=== PATIENT | female | born 1950 | race Caucasian/White ===

== ENCOUNTER 2017-12-05 10:42 | Emergency (ER) | payer MEDICARE, BC, SELFPAY ==
[2017-12-05 10:51] VITALS: BP 151/80; PULSE 83; RESP 18; TEMP 36.6
--- NOTE | 2017-12-05 11:00 | W.ED.GENAD ---
Discharge Plan Disposition Patient Disposition: HOME Condition: Fair Discharge Details Chief Complaint: Urinary Clinical Impression: Acute UTI, URI (upper respiratory infection) Primary Care Provider: Sofia Stubbs ED Provider: Eula Khanna Home Meds and New Rx's Prescriptions: New cephalexin [Keflex] 500 mg capsule 500 mg PO BID Qty: 10 RF: 0 Continue lisinopril 5 MG tablet 5 mg PO DAILY RF: 0 levothyroxine 112 MCG tablet 125 mcg PO DAILY RF: 0 Discharge Instructions Instructions: Urinary Tract Infection in Women (ED), Upper Respiratory Infection (ED) Additional Instructions: Encourage hydration. Tylenol and/or ibuprofen as needed for discomfort. Please take Keflex as prescribed for urinary tract infection. Pyridium can help with symptomatic management may be used as needed. Please follow-up with primary care in 1 week if your symptoms have not completely resolved. If you develop fever/chills, increased pain, pain in your back, nausea vomiting or other new/worsening symptoms please seek care urgently once again Referrals: Sofia Stubbs [Primary Care Provider] - Discharge Data Discharge Date/Time-TO BE ENTERED AT DEPARTURE: 12/05/17 12:20 Medical Decision Making Patient is 67-year-old female presenting today with chief complaint of dysuria, increased frequency and urgency. Reports that she has had some dribbling. Symptoms began approximately 2 days ago. She reports that she has had urinary tract infections historically, last was several years ago. She reports that this feels quite similar to the previous. Also endorsing upper respiratory symptoms including congestion, sore throat. Endorses some mild arthralgias and myalgias that began 1 week ago. States that she had low-grade temp last week which is since resolved T-max of 9010 ?F. Denies any GI upset. No nausea, vomiting or diarrhea. Denies any cough. States she been feeling very fatigued. Patient has a large amount of stress and fatigue recently. Plan obtain urinalysis. Patient's history and symptoms consistent with urinary tract infection. Patient is also endorsing sore throat and a rapid strep will be performed by nursing staff. She does not appear toxic, vital signs within normal limits Rapid strep negative. Advised that sore throat may be associated with a viral illness, patient diagnosed with pharyngitis. Urinalysis significant for moderate leukocyte esterase, over 50 WBCs, many bacteria with no epithelial cells. Discussed these findings with the patient. Patient diagnosed with a urinary tract infection. Encourage hydration. Patient replaced on Keflex. Also prescribed Pyridium to help with symptomatic management. We discussed new/worsening symptoms when to seek care urgently once again. Advise follow-up with primary care in 1 week if symptoms not completely resolved. All of her questions and concerns were addressed and she is in agreement this plan HPI General Mode of arrival: ambulatory. Date/Time Provider Initiated Documentation: 12/05/17 10:57. Limitations to Documentation: no limitations. Information obtained by: patient. History of Present Illness 67 year old F presents to the emergency department with the chief complaint of bladder pressure, increased urinary frequency, sore throat, described as mild, with intensity rated at 2. Quality is described as aching, and is localized to the mouth (sore throat) and pelvis (low central pain). Patient reports no radiation. Patient started experiencing this day(s) (2) and it has been constant. No relieving factors improve symptom(s), No exacerbating factors reported . Patient notes denies cough, fever/chills, headaches, nausea/vomiting, rash and shortness of breath. Patient did receive the following treatments prior to arrival, none Related Data Home Medications Medication Instructions Recorded Confirmed levothyroxine 125 mcg PO DAILY 06/21/13 12/05/17 lisinopril 5 mg PO DAILY 06/21/13 12/05/17 cephalexin [Keflex] 500 mg PO BID #10 cap 12/05/17 Previous Rx's Medication Instructions Recorded cephalexin [Keflex] 500 mg PO BID #10 cap 12/05/17 Allergies Allergy/AdvReac Type Severity Reaction Status Date / Time No Known Allergies Allergy Unverified 12/05/17 11:48 General Stated Complaint: Urinary VERONICA: 4 Review of Systems Constitutional Reports as per HPI, Reports fatigue (has had large amount of stress and feeling fatigued), Reports fever(s) (reports low grade fever last week with T max 99, since resolved), Denies headache(s), Denies malaise and Denies poor appetite ENT Reports as per HPI, Denies otalgia, Denies facial pain, Denies headache(s), Reports nasal congestion, Reports nasal discharge, Denies sinus pain, Denies sinus pressure and Reports sore throat (began today) Cardiovascular Denies chest pain and Denies dyspnea Respiratory Denies cough and Denies dyspnea Gastrointestinal Denies change in stool character, Denies nausea and Denies vomiting Genitourinary Reports as per HPI, Reports urinary frequency, Reports difficulty voiding, Denies dyspareunia, Reports dysuria, Denies flank pain, Reports urinary incontinence, Reports urinary hesitancy, Reports urinary urgency, Denies vaginal discharge, Denies vaginal odor and Denies vaginal pruritus Musculoskeletal Denies back pain Integumentary/Breasts Denies rash Neurologic Denies headache(s) Endocrine Reports fatigue (has had large amount of stress and feeling fatigued) [facility] Social History Smoking/Tobacco Use Status: Former Tobacco Use Exam Const General: cooperative, healthy appearing, comfortable, no acute distress, well developed and well groomed Nutritional Appearance: average body habitus and well nourished Orientation: alert and awake HENMT Head: normal to inspection and normocephalic Ears: hearing grossly normal bilaterally, external ears normal and TM's normal bilaterally General nose exam: external nose normal Face and sinus: normal facial exam Mouth: oral mucosae normal, lip normal, moist mucous membranes, no audible dysphonia, no drooling and no trismus Teeth and gingiva: dentition normal Throat: posterior oropharynx abnormal (mild erythema), tonsils normal and uvula midline Eyes General: appearance normal, both eyes and all related structures Neck Neck: normal visual inspection and no lymphadenopathy Resp Effort & Inspection: normal respiratory effort, able to speak in complete sentences and no respiratory distress Auscultation: clear to auscultation bilaterally Cardio Rate: regular rate Rhythm: regular rhythm Heart Sounds: S1 normal and S2 normal Back/Spine/Pelvis Back: no CVA tenderness Skin General skin exam: no rashes or lesions noted Lesions: no lesions Rashes: no rashes Neuro General: alert and awake Cognition: normal cognition Speech: speech normal Gait: normal gait Psych Appearance: grossly normal and well kempt Mental Status: mental status grossly normal Speech and Movement: speech and movement normal Course Vital Signs Temperature 36.6 C 12/05/17 10:51 Pulse 83 12/05/17 10:51 Respiratory Rate 18 12/05/17 10:51 Blood Pressure 151/80 H 12/05/17 10:51 Temperature 36.6 C 12/05/17 10:51 Temperature Source Temporal Artery Scan 12/05/17 10:51 Pulse 83 12/05/17 10:51 Respiratory Rate 18 12/05/17 10:51 Blood Pressure 151/80 H 12/05/17 10:51 Blood Pressure Position Sitting 12/05/17 10:51 Oxygen Delivery Method Room Air 12/05/17 10:51 Oxygen Flow Rate 0 12/05/17 10:51 Pain Level 2 12/05/17 10:51
[2017-12-05 11:51] LABS: Bilirubin Negative (Negative); Blood Negative (Negative); Clarity Sl Cloudy; Glucose Negative (Negative); Ketones Negative (Negative); Leukocyte Esterase Moderate (Negative); Nitrite Negative (Negative); Specific Gravity 1.025 (1.005-1.025); Urobilinogen 0.2 EU/dL (Up TO 0.2)
[2017-12-05 12:03] LABS: Bacteria Many HPF (Negative); C & S Indicated? Yes; WBC >50 HPF (0-5)
== END 2017-12-05 12:20 | disposition home or self-care (01) ==
PROVIDERS: Emergency Provider Physician Assistant; PCP Nurse Practitioner
DX: J06.9 Acute upper respiratory infection, unspecified (principal); N39.0 Urinary tract infection, site not specified; B96.20 Unspecified Escherichia coli [E. coli] as the cause of diseases classified elsewhere; Z87.440 Personal history of urinary (tract) infections; I10 Essential (primary) hypertension
CPT/HCPCS: 87077; 87880; 99283; 81003; 81015; 87081; 87086; 87186

== ENCOUNTER 2017-12-13 18:03 | Outpatient (REF) | payer MEDICARE, BC, SELFPAY | END 2017-12-13 18:23 | LOC: NCHCN 18:03 | PROVIDERS: PCP Nurse Practitioner; Visit Provider Nurse Practitioner Family | DX: R30.0 Dysuria (principal) | CPT/HCPCS: 87077; 87086; 87186 ==

== ENCOUNTER 2018-03-14 13:46 | Emergency (ER) | payer MEDICARE, BC, SELFPAY ==
[2018-03-14] VITALS (22 sets, daily range): BP systolic 104–142; BP diastolic 50–120; PULSE 55–69; RESP 9–21; TEMP 36.4; O2SAT 99–100
[2018-03-14 14:40] LABS: Absolute Lymphocyte Count 2.25 k/cumm (1.2-3.4); Absolute Monocyte Count 0.38 k/cumm (0.11-0.7); Absolute Neutrophil Count 4.88 k/cumm (1.2-6.7); Diff Comment Manual Differential; HCT 43.6 % (36.0-46.0); HGB 14.3 g/dL (12.0-15.5); Mean Corp. HGB Concentration 32.8 g/dL (32.0-36.0); Mean Corpuscular Hemoglobin 28.9 pg (27.0-33.0); Mean Corpuscular Volume 88.1 fL (80-95); Mean Platelet Volume 11.5 fL (8.0-11.0); Platelet Count 330 x1000/uL (130-400); RBC 4.95 m/cumm (4.00-5.20); RBC Morphology Normal
[2018-03-14] MEDS: Normal Saline 500 ML IV ×2 (14:46→15:45)
--- NOTE | 2018-03-14 14:53 | ED.GENADUL_ITS ---
Discharge Plan Disposition Patient Disposition: HOME Condition: Improving Discharge Details Chief Complaint: Dizzy/Sync Clinical Impression: Syncope, vasovagal, Right ankle sprain Reason For Visit: DAVID Primary Care Provider: Sofia Stubbs ED Provider: Dany Viramontes Home Meds and New Rx's Prescriptions: Continued lisinopril 5 MG tablet 5 mg PO DAILY RF: 0 levothyroxine 112 MCG tablet 125 mcg PO DAILY RF: 0 Discharge Instructions Instructions: Syncope (ED) Additional Instructions: Please stay well-hydrated and return for any return of your symptoms or any further G may have. Otherwise follow-up with your primary care provider as needed for reassessment. Referrals: Sofia Stubbs [Primary Care Provider] - (As needed for reassessment) Discharge Data Discharge Date/Time-TO BE ENTERED AT DEPARTURE: 03/14/18 16:37 Medical Decision Making Patient presenting to the emergency department via EMS for chief complaint of syncope. Patient states that she had a sudden urge to use the restroom and during a significant episode of diarrhea she attempted to stand up and got lightheaded and passed out. She states afterwards her only complaint was some mild right ankle pain. Patient is otherwise asymptomatic and denies any chest pain, difficulty breathing, focal neurological deficits. Exam at this time is unremarkable except for some mild anterior ankle pain. Patient has full range of motion no tenderness to bony prominences and is weightbearing on ankle. Far as the ankle pain goes I feel that patient more has sprained than fracture do not feel that radiological imaging is needed or warranted at this time patient also states that she would prefer not to have imaging of the ankle she also doubts fracture. Plan to check EKG, and labs to rule out any emergent cause of syncope but highly suspect vasovagal event. Pending results patient given normal saline. Review of labs show subtle signs suggestive of mild dehydration along with orthostatics also showing the same but no other worrisome findings are noted. Patient fluid bolus finished and patient reassessed and states improvement of symptoms and that she has had no return of any dizziness lightheadedness with any standing or movement. I feel that this is reassuring and patient can be discharged with instructions to stay well-hydrated and return as needed. After discussion of diagnosis and plan of care patient has no further needs, questions, or concerns and states clear understanding to return to the emergency department for any worsening sympto HPI General Mode of arrival: EMS . Date/Time Provider Initiated Documentation: 03/14/18 14:08 . Limitations to Documentation: no limitations . Information obtained by: patient and RN notes reviewed . History of Present Illness 67 year old F presents to the emergency department with the chief complaint of Syncope, right ankle pain, described as mild, with intensity rated at 3. Quality is described as aching, and is localized to the right and lower extremity. Patient started experiencing this hour(s) (1) and it has been constant. Related Data Home Medications Medication Instructions Recorded Confirmed levothyroxine 125 mcg PO DAILY 06/21/13 03/14/18 lisinopril 5 mg PO DAILY 06/21/13 03/14/18 Allergies Allergy/AdvReac Type Severity Reaction Status Date / Time No Known Allergies Allergy Unverified 03/14/18 14:00 General Stated Complaint: Dizzy/Sync VERONICA: 3 Review of Systems Constitutional Denies chills, Denies fever(s) and Denies malaise Cardiovascular Reports as per HPI, Denies chest pain, Denies chest pain with activity, Reports syncope, Denies irregular heart rhythm, Denies palpitations and Denies dyspnea Respiratory Denies cough, Denies hemoptysis and Denies dyspnea Gastrointestinal Denies abdominal pain, Reports diarrhea, Denies nausea and Denies vomiting Musculoskeletal Reports as per HPI Neurologic Reports syncope Psychiatric Denies anxiety Endocrine Denies cold intolerance, Denies heat intolerance and Denies palpitations [facility] Social History Smoking and Tabacco status: Former Tobacco Use Exam Const General: cooperative, healthy appearing, comfortable, no acute distress, not diaphoretic and not ill appearing Nutritional Appearance: average body habitus Orientation: alert, awake and oriented x3 Limitations: mental status not altered Neck Neck: normal visual inspection, full ROM, trachea midline, supple and no anterior neck swelling Thyroid: thyroid normal Carotids: normal carotid upstroke and no bruits Chest Chest: normal inspection of the chest Resp Effort & Inspection: normal respiratory effort and able to speak in complete sentences Auscultation: clear to auscultation bilaterally Cardio Jugular venous pressure: no JVD Palpation: normal PMI Rate: regular rate Rhythm: regular rhythm Heart Sounds: S1 normal, S2 normal, no click, no gallops, no murmurs and no rubs Bruits: no abdominal aortic bruits and no carotid bruits Pulses: radial pulses present bilaterally 2+ GI Inspection: normal to inspection Palpation: soft, no aortic enlargement, no pulsatile masses and nontender Auscultation: normal bowel sounds Skin General skin exam: no rashes or lesions noted Neuro General: alert, awake, oriented x3, gait normal, tone normal, moves all extremities, no focal motor deficits and CN's II-XI intact bilaterally Cognition: normal cognition Speech: speech normal Motor: muscle tone normal throughout, strength 5/5 throughout and no movement abnormalities noted Sensory Exam: no sensory deficits noted Extrem Right lower extremity: knee Details: normal to inspection and normal ROM; no tenderness, ankle Details: tenderness Location: anteriorly; not of the lateral malleolus, not of the medial malleolus and not posteriorly and foot Details: normal capillary refill and normal to inspection Course Vital Signs Respiratory Rate 21 03/14/18 13:52 Pulse Oximetry 100 03/14/18 13:52 Temperature 36.4 C L 03/14/18 13:56 Temperature Source Skin 03/14/18 13:56 Pulse 57 L 03/14/18 14:01 Pulse 59 L 03/14/18 14:10 Respiratory Rate 16 03/14/18 14:16 Respiratory Effort Non-Labored 03/14/18 14:16 Respiratory Depth Normal 03/14/18 14:16 Respiratory Pattern Normal 03/14/18 14:16 Blood Pressure 108/79 03/14/18 14:01 Blood Pressure Mean 85 03/14/18 14:01 Blood Pressure Position Supine 03/14/18 13:56 Pulse Oximetry 100 03/14/18 14:10 Oxygen Delivery Method Room Air 03/14/18 13:56 Oxygen Flow Rate 0 03/14/18 13:56 Pain Level 2 03/14/18 14:19 Lab/Test Results Lab/Test Results: Laboratory Tests Range/Units 03/14/18 14:10 WBC (4.4-10.8) k/cumm 7.50 RBC (4.00-5.20) m/cumm 4.95 Hgb (12.0-15.5) g/dL 14.3 Hct (36.0-46.0) % 43.6 MCV (80-95) fL 88.1 MCH (27.0-33.0) pg 28.9 MCHC (32.0-36.0) g/dL 32.8 RDW (11.7-14.6) % 14.0 Plt Count (130-400) x1000/uL 330 MPV (8.0-11.0) fL 11.5 H Immature Gran % 0.0 Neutrophils % 65.0 Lymphocytes % 30.0 Monocytes % 5.0 Eosinophils % 0.0 Basophils % 0.0 Absolute Neutrophils (1.2-6.7) k/cumm 4.88 Absolute Lymphocytes (1.2-3.4) k/cumm 2.25 Absolute Monocytes (0.11-0.7) k/cumm 0.38 Absolute Eosinophils (0.0-0.7) k/cumm 0.00 Absolute Basophils (0.0-0.2) k/cumm 0.00 Differential Comment Manual differential RBC Morphology Normal
[2018-03-14 14:57] LABS: ALT 23 U/L (12-78); AST 20 U/L (15-37); Albumin 3.6 g/dL (3.4-5.0); Alkaline Phosphatase 86 U/L (46-116); Anion Gap 8.9 mmol/L (3-11); BUN 19 mg/dL (7-18); Bilirubin, Total 0.5 mg/dL (0.2-1.0); CO2 30.1 mmol/L (21.0-32.0); CREATININE 1.06 mg/dL (0.55-1.02); Calcium 9.1 mg/dL (8.5-10.1); Chloride 106 mmol/L (98-107); Glucose 128 mg/dL (70-100); Magnesium 2.2 mg/dL (1.8-2.4); Potassium 3.7 mmol/L (3.5-5.1); Sodium 145 mmol/L (136-145); Total Protein 7.4 g/dL (6.4-8.2)
[2018-03-14 15:00] LABS: Troponin I < 0.02 ng/mL (0.00-0.06)
== END 2018-03-14 16:37 | disposition home or self-care (01) ==
PROVIDERS: Emergency Provider Nurse Practitioner Family; PCP Nurse Practitioner
DX: R55 Syncope and collapse (principal); R19.7 Diarrhea, unspecified; S93.421A Sprain of deltoid ligament of right ankle, initial encounter; W01.0XXA Fall on same level from slipping, tripping and stumbling without subsequent striking against object, initial encounter
CPT/HCPCS: 36415; 80053; 93005; 96360; 99284; 81003; 83735; 84484; 85025; 93010

== ENCOUNTER 2018-05-11 20:40 | Emergency (ER) | payer MEDICARE, BC, SELFPAY ==
[2018-05-11 20:43] VITALS: BP 150/94; PULSE 88; RESP 16; TEMP 36.4; O2SAT 99
--- NOTE | 2018-05-11 21:01 | ED.GENADUL_ITS ---
Discharge Plan Disposition Patient Disposition: HOME Condition: Stable Discharge Details Chief Complaint: RespSymp Clinical Impression: URI (upper respiratory infection) Primary Care Provider: Sofia Stubbs ED Provider: Johnson Burden Home Meds and New Rx's Prescriptions: New doxycycline hyclate 100 mg tablet 100 mg PO BID Qty: 14 RF: 0 No Action lisinopril 5 MG tablet 5 mg PO DAILY RF: 0 levothyroxine 112 MCG tablet 125 mcg PO DAILY RF: 0 Discharge Instructions Instructions: Upper Respiratory Infection (ED) Additional Instructions: IF you are not better within a week see your primary care provider if you feel you are becoming more ill or having worsening trouble breathing return to the emergency department Medical Decision Making 68 yo female who has a hx of htn, comes in with cc of cough for several days and today had a fever so came here for an eval. Denies recent travel, rashes, vomit. She appears well on exam in no distress speaking in full sentences with intermittent dry cough. She has clear rhininorrhea, normal oropharynx, no murmurs. I suspect uri but will check for influenza and also obtain chest xray to eval for infiltrate. She appears well and is afebrile so doubt sepsis and do not feel lab work indicated at this time influenza negative and cxr negative, she is resting in bed in no distrss with stable vitals. Suspect viral uri but will provide abx and advised only to fill if not improving in 2-3 days or if she worsens and to come back for reeval if this happens Differential Diagnosis pna, uri, influenza Imaging Data Radiologic Study: Attestation: I personally reviewed and interpreted this imaging study as follows: Imaging: X-Ray Radiologist's impression: no acute findings Lab Data Lab results reviewed: Yes I reviewed the patient's lab results. HPI General Mode of arrival: ambulatory . Date/Time Provider Initiated Documentation: 05/11/18 20:50 . Limitations to Documentation: no limitations . Information obtained by: patient . History of Present Illness 68 year old F presents to the emergency department with the chief complaint of cough, described as moderate, Quality is described as aching, Patient reports no radiation. Patient started experiencing this day(s) (3) and it has been intermittent. No relieving factors improve symptom(s), No exacerbating factors reported . Patient notes fever/chills. Patient did receive the following treatments prior to arrival, none Related Data Home Medications Medication Instructions Recorded Confirmed levothyroxine 125 mcg PO DAILY 06/21/13 05/11/18 lisinopril 5 mg PO DAILY 06/21/13 05/11/18 doxycycline hyclate 100 mg PO BID #14 tab 05/11/18 Previous Rx's Medication Instructions Recorded doxycycline hyclate 100 mg PO BID #14 tab 05/11/18 Allergies Allergy/AdvReac Type Severity Reaction Status Date / Time No Known Allergies Allergy Unverified 05/11/18 20:47 General Stated Complaint: RespSymp VERONICA: 3 Review of Systems Review of Systems All systems reviewed & are unremarkable except as noted in HPI and below ENT Denies change in voice Cardiovascular Denies chest pain and Denies dyspnea Respiratory Denies dyspnea Gastrointestinal Denies abdominal pain, Denies nausea and Denies vomiting Psychiatric Denies depression Endocrine Denies cold intolerance and Denies heat intolerance PFSH Social History Smoking/Tobacco Use Status: Former Tobacco Use Alcohol Intake: current Alcohol Intake frequency: a few times a month Drug use: Never Substance use type: does not use Do you feel safe at home: Yes Do you feel safe in your relationship?: Yes Exam Const General: no acute distress Orientation: alert HENMT Head: normal to inspection Ears: external ears normal General nose exam: external nose normal Mouth: moist mucous membranes Eyes General: appearance normal, both eyes and all related structures Neck Neck: normal visual inspection Resp Effort & Inspection: normal respiratory effort and able to speak in complete sentences Cardio Rate: regular rate Skin General skin exam: no rashes or lesions noted Neuro General: alert and oriented x3 Extrem General: normal to inspection Psych Mental Status: mental status grossly normal Course Vital Signs Temperature 36.4 C L 05/11/18 20:43 Pulse 88 05/11/18 20:43 Respiratory Rate 16 05/11/18 20:43 Blood Pressure 150/94 H 05/11/18 20:43 Pulse Oximetry 99 05/11/18 20:43 Temperature 36.4 C L 05/11/18 20:43 Temperature Source Skin 05/11/18 20:43 Pulse 88 05/11/18 20:43 Respiratory Rate 16 05/11/18 20:43 Respiratory Effort 05/11/18 20:49 Respiratory Depth Normal 05/11/18 20:49 Blood Pressure 150/94 H 05/11/18 20:43 Blood Pressure Position Sitting 05/11/18 20:43 Pulse Oximetry 99 05/11/18 20:43 Oxygen Delivery Method Room Air 05/11/18 20:43 Oxygen Flow Rate 0 05/11/18 20:43 Pain Level 4 05/11/18 20:43
--- NOTE | 2018-05-11 21:20 | DI.RAD_ITS ---
SYMPTOM/DIAGNOSIS: COUGH PA AND LATERAL CHEST: The heart is not enlarged. The lungs are generally clear with question of minimal linear radiodensities in the left lung base which may represent atelectasis or scarring. No pleural effusion is seen. CONCLUSION: No evidence of acute disease.
--- NOTE | 2018-05-11 21:48 | DI.VRAD_ITS ---
EXAM: XR Chest, 2 Views EXAM DATE/TIME: 05/11/2018 8:58 PM CLINICAL HISTORY: 68 years old, female; Signs and symptoms; Cough; Patient HX: Productive cough x 4 days, yellowish sputum. Ex smoker quit in 2008. TECHNIQUE: Imaging protocol: XR of the chest, 2 views. COMPARISON: No relevant prior studies available. FINDINGS: Lungs: Clear lungs. Pleural space: No pneumothorax. No sizable pleural effusion. Heart/Mediastinum: No cardiomegaly. Bones/joints: Unremarkable. IMPRESSION: Clear lungs. Dictated and Authenticated by: Troy Nelson MD. Ordering:SAV Ornelas MD
== END 2018-05-11 22:32 | disposition home or self-care (01) ==
PROVIDERS: Emergency Provider Emergency Medicine; PCP Nurse Practitioner
DX: J06.9 Acute upper respiratory infection, unspecified (principal)
CPT/HCPCS: 87449; 99283; 71046

== ENCOUNTER 2018-05-23 08:57 | Outpatient (CLI) | payer MEDICARE, BC, SELFPAY ==
[2018-05-23 10:44] LABS: ALT 34 U/L (12-78); AST 18 U/L (15-37); Albumin 3.7 g/dL (3.4-5.0); Alkaline Phosphatase 118 U/L (46-116); Anion Gap 9.1 mmol/L (3-11); BUN 15 mg/dL (7-18); Bilirubin, Total 0.6 mg/dL (0.2-1.0); CO2 29.9 mmol/L (21.0-32.0); CREATININE 0.88 mg/dL (0.55-1.02); Calcium 9.3 mg/dL (8.5-10.1); Chloride 103 mmol/L (98-107); Cholesterol 186 mg/dL (50-200); Glucose 94 mg/dL (70-100); HDL Cholesterol 57 mg/dL (40-60); LDL CHOLESTEROL 115 mg/dL (<100); Potassium 4.5 mmol/L (3.5-5.1); Sodium 142 mmol/L (136-145); TSH (W/Ref FT4) 0.12 uIU/mL (0.358-3.74); Total Protein 6.9 g/dL (6.4-8.2); Triglyceride 62 mg/dL (30-150)
[2018-05-23 11:11] LABS: FREE T4 1.67 ng/dL (0.76-1.46)
== END 2018-05-23 09:17 ==
PROVIDERS: PCP Nurse Practitioner; Visit Provider Nurse Practitioner
DX: I10 Essential (primary) hypertension (principal); E03.9 Hypothyroidism, unspecified; Z13.6 Encounter for screening for cardiovascular disorders
CPT/HCPCS: 36415; 80053; 80061; 83721; 84439; 84443

== ENCOUNTER 2018-07-31 15:19 | Outpatient (CLI) | payer MEDICARE, BC, SELFPAY ==
[2018-07-31 16:45] LABS: ALT 27 U/L (12-78); AST 21 U/L (15-37); Alkaline Phosphatase 97 U/L (46-116); Anion Gap 6.3 mmol/L (3-11); BUN 18 mg/dL (7-18); Bilirubin, Total 0.7 mg/dL (0.2-1.0); CO2 30.7 mmol/L (21.0-32.0); CREATININE 0.94 mg/dL (0.55-1.02); Chloride 104 mmol/L (98-107); Estimated GFR 58.87 (mL/min/1.73m2); Glucose 88 mg/dL (70-100); Potassium 4.4 mmol/L (3.5-5.1); Sodium 141 mmol/L (136-145); Total Protein 7.1 g/dL (6.4-8.2)
[2018-08-01 13:21] LABS: SS-A Antibody 2.7 Units (<20); SS-B (La) Ab, IgG 9.7 Units (<20)
== END 2018-07-31 15:39 ==
PROVIDERS: PCP Nurse Practitioner; Visit Provider Otolaryngology Otolaryngology/Facial Plastic Surgery
DX: R43.0 Anosmia (principal); R43.2 Parageusia; R44.2 Other hallucinations; L40.9 Psoriasis, unspecified; R68.2 Dry mouth, unspecified; J34.89 Other specified disorders of nose and nasal sinuses
CPT/HCPCS: 36415; 80053; 86235

== ENCOUNTER 2018-08-23 08:03 | Outpatient (CLI) | payer MEDICARE, BC, SELFPAY ==
[2018-08-23 09:30] LABS: TSH 1.31 uIU/mL (0.358-3.74)
== END 2018-08-23 08:23 ==
PROVIDERS: PCP Nurse Practitioner; Visit Provider Nurse Practitioner
DX: E03.9 Hypothyroidism, unspecified (principal)
CPT/HCPCS: 36415; 84443

== ENCOUNTER 2018-11-03 22:35 | Emergency (ER) | payer MEDICARE, BC, SELFPAY ==
--- NOTE | 2018-11-03 22:44 | ED.GENADUL_ITS ---
Discharge Plan Disposition Patient Disposition: HOME Condition: Good Discharge Details Chief Complaint: Dizzy/Sync Clinical Impression: Peripheral vertigo, Acute labyrinthitis Primary Care Provider: Sofia Stubbs ED Provider: Remy Quintanilla Home Meds and New Rx's Prescriptions: New meclizine 25 mg tablet 25 mg PO TID Qty: 14 RF: 0 ondansetron HCl [Zofran] 4 mg tablet 4 mg PO Q8H 4 Days Qty: 12 RF: 0 No Action omega-3 fatty acids 1,000 mg capsule 1,000 mg PO DAILY RF: 0 cholecalciferol (vitamin D3) 1,000 unit capsule 1,000 unit PO DAILY RF: 0 juice plus fiber PO RF: 0 multivitamin tablet 1 tab PO DAILY RF: 0 ibuprofen 800 mg tablet 800 mg PO PRN PRNRF: 0 lisinopril 5 MG tablet 5 mg PO DAILY RF: 0 levothyroxine 112 MCG tablet 125 mcg PO DAILY RF: 0 Discharge Instructions Instructions: Labyrinthitis (ED) Additional Instructions: You have a type of peripheral vertigo. This usually gets better on its own with time. Please take the meclizine and Zofran as needed. Continue to drink 10 to 12 cups of water per day. If you notice any worsening of your symptoms, or any new symptoms such as vomiting, diarrhea, fever, chills, shortness of breath, chest pain, numbness, weakness, or fainting , please return immediately to the emergency department for reevaluation. Please follow up with your primary care provider as soon as possible for reassessment and reevaluation. As always, it was a pleasure participating in your medical care today. Referrals: Sofia Stubbs [Primary Care Provider] - Medical Decision Making This is a 68-year-old female with past medical history of hypertension and chronic anosmia who presents today for notable dizziness and vomiting. Patient states that 1 to 2 hours ago she developed sudden onset dizziness, made worse with moving her head, with associated ringing in her ears. The dizziness brought up out the nausea and vomiting. She denies any abdominal tenderness or headache. Neurologic exam is normal, ambulation demonstrates no signs of ataxia. Cerebellar function testing demonstrates no dysmetria, dysdiadochokinesia, ataxia, vertical or rotatory nystagmus, or positive test of skew. She does have notable horizontal nystagmus, and a positive head impulse test. Signs and symptoms appear clinically consistent with a peripheral etiology. Because of her age and risk factors we will get a CT scan of the head, however I doubt intracranial etiology as her signs and symptoms would appear inconsistent with this. We will give meclizine, Zofran, rehydrate and reassess. 12:[address] scan has returned negative for any acute intracranial process, bleed or infarct. Laboratory work-up is returned unremarkable, no significant electrolyte abnormalities, normal renal function. On reassessment patient signs and symptoms have nearly completely resolved. She has been able to tolerate p.o., she is feeling much better, her dizziness is nearly completely abated. Signs and symptoms at this time appear clinically consistent with peripheral vertigo, and likely M?ni?re's disease or labyrinthitis due to the acute severity of her symptoms. With a repeat neurologic exam being unremarkable and negative for any central event, I feel she can be safely discharged home. Patient feels safe and stable with this plan. I have extensively reviewed the treatment plan and discharge instructions with the patient. I have addressed all patient concerns at this time. The patient was made aware of what symptoms to monitor for that would warrant a return to the emergency department. Discussed the plan with the patient, they demonstrate verbal understanding and agreement with our assessment and plan at this time. FINDINGS: Brain: No hemorrhage. No significant white matter disease. No edema. Ventricles: No ventriculomegaly. Bones/joints: No acute fracture. Sinuses: No acute sinusitis. Mastoid air cells: No mastoid effusion. Soft tissues: No suspicious lesions. IMPRESSION: No acute intracranial findings. Thank you for allowing us to participate in the care of your patient. Dictated and Authenticated by: Alison Clemons MD 11/03/2018 11:55 PM Eastern Time ([place] & [place]) HPI General Date/Time Provider Initiated Documentation: 11/03/18 22:39 . HPI Narrative: This is a 68-year-old female with a past medical history of hypertension, mild anosmia who presents today for evaluation of dizziness and vomiting. Patient states that 1 hour ago she developed relatively sudden onset dizziness that seem to come on on its own. It was associated with notable ringing in her ears, and is made worse by turning her head to the left and the right. She denies any recent upper respiratory infection symptoms. She denies chest pain, shortness of breath, headache, neck pain, numbness, tingling, weakness. She denies history of stroke. She denies any tobacco abuse. She denies any recent traumas. She denies any other complaints at this time. Symptoms are improved most by closing her eyes and not moving her head, made worse by moving her head and keeping her eyes open. Related Data Home Medications Medication Instructions Recorded Confirmed levothyroxine 125 mcg PO DAILY 06/21/13 11/03/18 lisinopril 5 mg PO DAILY 06/21/13 11/03/18 cholecalciferol (vitamin D3) 1,000 1,000 unit PO DAILY 06/22/18 11/03/18 unit capsule ibuprofen 800 mg tablet 800 mg PO PRN PRN tab 06/22/18 11/03/18 juice plus fiber PO 06/22/18 06/22/18 multivitamin 1 tab PO DAILY 06/22/18 11/03/18 omega-3 fatty acids 1,000 mg 1,000 mg PO DAILY 06/22/18 11/03/18 capsule meclizine 25 mg PO TID #14 tab 11/04/18 ondansetron HCl [Zofran] 4 mg PO Q8H 4 Days #12 tab 11/04/18 Previous Rx's Medication Instructions Recorded meclizine 25 mg PO TID #14 tab 11/04/18 ondansetron HCl [Zofran] 4 mg PO Q8H 4 Days #12 tab 11/04/18 Allergies Allergy/AdvReac Type Severity Reaction Status Date / Time No Known Allergies Allergy Unverified 11/03/18 23:06 General VERONICA: 3 Review of Systems Review of Systems ROS Unobtainable: All systems reviewed & are unremarkable except as noted in HPI and below PFSH Medical History (Updated 06/22/18 @ 15:54 by Gisell Yost RN) ADD (attention deficit disorder) (Chronic) Adrenal incidentaloma (Acute) Colon polyp (Resolved) Depression (Chronic) History of cigarette smoking (Resolved) HPV in female (Acute) HTN (hypertension) (Chronic) Hypothyroidism (Chronic) Psoriasis (Chronic) Social History Smoking/Tobacco Use Status: Former Tobacco Use Alcohol Intake: current Alcohol Intake frequency: a few times a month Drug use: Never Substance use type: does not use Do you feel safe at home: Yes Do you feel safe in your relationship?: Yes Exam Narrative Exam Narrative: 1.Const: Well-nourished, Well-developed, appearing stated age 2.Eyes: PERRL, no conjunctival injection, and symmetrical lids. 3.ENT: Atraumatic external nose and ears. Dry MM. Neck: Symmetric, trachea midline, No thyromegaly. Normal TMs with no evidence of effusion. 4.CVS: +S1/S2, No murmurs or gallops. Peripheral pulses 2+ and equal in all extremities. Brisk capillary refill in all extremities. 5.RESP: Unlabored respiratory effort. Clear to auscultation bilaterally. No wheezes rales or rhonchi 6.GI: Soft, Nontender/Nondistended, No hepatosplenomegaly. No guarding or rebound. Normal bowel sounds throughout, no pain at McBurney's point, negative Merlos sign. 7.MSK: Normocephalic/Atraumatic, Extremities w/o deformity or ttp No cyanosis or clubbing, Normal movement of all extremities 8.Skin: Warm, Dry. No rashes or lesions. 9.Neuro: primary health organisation manager II-XII grossly intact. Sensation grossly intact, no focal neurologic deficits. All 6 cardinal planes of vision are fully intact. No evidence of rotatory or vertical nystagmus. The patient demonstrated a normal [id number], good dexterity. There was no evidence of dysdiadochokinesia. Patient was able to ambulate without difficulty. There was no wide-based gait. Romberg, and iscg-[id number] are both normal on testing. Sensation was intact bilaterally as well as muscle strength bilaterally for all extremities. Patient was able to verbalize butter cup with no slurring, or miss pronunciation. Cerebellar function testing is normal. The patient demonstrates a normal hints exam with no findings concerning for a central event. No vertical nystagmus although she does have notable horizontal nystagmus. No rotatory nystagmus.. The head impulse test is negative for any significant central abnormality and demonstrates symptoms consistent with peripheral etiology as she has notable worsening of her symptoms with this movement, as well as loss of correction. Normal test of skew. No suggestion of a central cerebellar event. 10.Psych: (AAO) x3. Appropriate mood and affect
[2018-11-03] MEDS: Normal Saline 1,000 ML 1000 ML IV (22:45)
[2018-11-03 23:03] VITALS: BP 137/107; PULSE 56; RESP 20; TEMP 36.4; O2SAT 99
[2018-11-03 23:03] LABS: Abs Immature Grans 0.02 k/cumm (0.0-0.09); Absolute Basophil Count 0.06 k/cumm (0.0-0.2); Absolute Eosinophil Count 0.19 k/cumm (0.0-0.7); Absolute Lymphocyte Count 2.44 k/cumm (1.2-3.4); Absolute Monocyte Count 0.53 k/cumm (0.11-0.7); Absolute Neutrophil Count 3.94 k/cumm (1.2-6.7); Basophils % 0.8; Eosinophils % 2.6; HCT 37.7 % (36.0-46.0); HGB 12.9 g/dL (12.0-15.5); Immature Grans % 0.3; Mean Corp. HGB Concentration 34.2 g/dL (32.0-36.0); Mean Corpuscular Hemoglobin 29.7 pg (27.0-33.0); Mean Corpuscular Volume 86.7 fL (80-95); Monocytes % 7.4; Neutrophils % 54.9; Platelet Count 312 x1000/uL (130-400); RBC 4.35 m/cumm (4.00-5.20); White Blood Cell Count 7.18 k/cumm (4.4-10.8)
[2018-11-03 23:10] VITALS: BP 119/66; PULSE 58; O2SAT 95
[2018-11-03 23:11] VITALS: RESP 20
[2018-11-03] MEDS: Meclizine 25 MG TAB PO (23:16)
[2018-11-03] MEDS: Ondansetron 4 MG/2 ML VIAL (23:16)
[2018-11-03 23:19] LABS: ALT 25 U/L (14-59); AST 18 U/L (15-37); Albumin 3.7 g/dL (3.4-5.0); Alkaline Phosphatase 84 U/L (46-116); Anion Gap 12.7 mmol/L (3-11); BUN 15 mg/dL (7-18); Bilirubin, Total 0.3 mg/dL (0.2-1.0); CO2 24.3 mmol/L (21.0-32.0); CREATININE 0.91 mg/dL (0.55-1.02); Calcium 8.6 mg/dL (8.5-10.1); Chloride 103 mmol/L (98-107); Glucose 133 mg/dL (70-100); Lipase 109 U/L (73-393); Potassium 3.4 mmol/L (3.5-5.1); Sodium 140 mmol/L (136-145); Total Protein 6.9 g/dL (6.4-8.2)
--- NOTE | 2018-11-03 23:44 | DI.CT_ITS ---
EXAM: CT HEAD WO CLINICAL HISTORY: severe dizzyness. TECHNIQUE: Imaging Protocol: Axial computed tomography images with coronal and sagittal reformatted images were created and reviewed COMPARISON: There are no priors for comparison. FINDINGS: Ventricles and Extra axial spaces: Normal in size and morphology for the patient's age. Hemorrhage: None. Cerebral parenchyma: Normal. Midline shift: None. Brainstem/Cerebellum: Normal. Calvarium: Normal. Visualized Paranasal sinuses/Mastoids: No evidence of acute sinusitis. IMPRESSION: No acute intracranial process. DATA REPOSITORY: All CT scans at this facility are submitted to the National Radiology Data Registry (NRDR) Dose Index Registry (DIR) with the [employer] (A[employer]). RADIATION OPTIMIZATION: All CT scans at this facility use at least one of these dose optimization te chniques: automated exposure control; mA and/or kV adjustment per patient size (includes targeted exa ms where dose is matched to clinical indication); or iterative reconstruction.
[2018-11-04 00:18] VITALS: BP 125/67; PULSE 67; O2SAT 97
[2018-11-04] MEDS: Meclizine 25 MG TAB PO (00:50)
[2018-11-04] MEDS: Ondansetron O.D.T. 4 MG TABEF 8 MG PO (00:50)
[2018-11-04 01:00] VITALS: BP 125/67; PULSE 67; RESP 20; O2SAT 97
== END 2018-11-04 01:01 | disposition home or self-care (01) ==
PROVIDERS: Emergency Provider Student in an Organized Health Care Education/Training Program; PCP Nurse Practitioner
DX: H81.399 Other peripheral vertigo, unspecified ear (principal); H83.09 Labyrinthitis, unspecified ear; I10 Essential (primary) hypertension
CPT/HCPCS: 36415; 80053; 83690; 96361; 96374; 99284; 70450; 85025; J2405

== ENCOUNTER → 2018-11-17 10:49 | Outpatient (BNVA) | payer MEDICARE, BC, SELFPAY | PROVIDERS: PCP Nurse Practitioner; Referring Provider Nurse Practitioner; Visit Provider Physical Therapy Assistant | DX: Z12.11 Encounter for screening for malignant neoplasm of colon (principal); Z80.0 Family history of malignant neoplasm of digestive organs; I10 Essential (primary) hypertension ==

== ENCOUNTER 2018-12-26 07:15 | Day surgery (SDC) | payer MEDICARE, BC, SELFPAY ==
--- NOTE | 2018-12-11 06:56 | W.COLOREPORT ---
Date of service: 12/11/18 Colonoscopy Report Date of procedure: 12/11/18 Pre-op diagnosis general: Colon CAncer Screening and Family history of colon cancer Procedure: Colonoscopy Surgeon: Kait Myers Anesthesia proc note operative: other (General/ ASA /) Complications: None Disposition: same day Indications: Mrs. Mendez is a pleasant 68-year-old female who was seen in the office for a screening colonoscopy. Her last colonoscopy was 5 years ago and was normal. She has a family history of colon cancer in a paternal grandfather. Risks, benefits and complications have been reviewed. Complications include but are not limited to bleeding, pain, perforation, missed small lesion/polyp, sore throat, aspiration and adverse reaction to the medications. Questions were entertained and answered to their satisfaction and they wished to proceed. No guarantees were given or implied. Prep: Miralax/Dulcolax Procedure Description: After informed consent was obtained the patient was taken to the procedure room and placed in a left decubitous position. Monitors were applied and a time out was done. The patients name, date of , procedure, allergies to medications and metal in their body was reviewed. The patient was then sedated. Once sedated and comfortable a rectal exam was done. External exam was normal. Internal exam revealed a normal sphincter tone and no palpable masses. The scope was then introduced and retro-flexed. [] internal hemorrhoids were identified. The scope was then advanced to the cecum [] difficulty. The TI and appendiceal orifice were identified. The prep was []. The scope was then slowly retracted over [] minutes back into the rectum. Polyps were removed at []. The scope was removed and the patient was woken up and taken back to Same day surgery in stable condition. The patient tolerated the procedure well and there were no immediate complications. Follow up: The patient should follow up in [] years unless they develop changes in bowel habits or other new gastrointestinal complaints.
--- NOTE | 2018-12-11 06:58 | W.PM.DSUDISC ---
Discharge Plan Disposition Patient Disposition: HOME Condition: Good Discharge Details Reason For Visit: Colon Cancer Screening Attending Provider: Kait Myers Primary Care Provider: Sofia Stubbs Home Meds and New Rx's Prescriptions: Continued omega-3 fatty acids 1,000 mg capsule 1,000 mg PO DAILY PRNRF: 0 cholecalciferol (vitamin D3) 1,000 unit capsule 1,000 unit PO DAILY RF: 0 juice plus fiber PO RF: 0 multivitamin tablet 1 tab PO DAILY PRNRF: 0 ibuprofen 800 mg tablet 800 mg PO PRN PRNRF: 0 lisinopril 5 MG tablet 5 mg PO DAILY RF: 0 levothyroxine 112 MCG tablet 112 mcg PO DAILY RF: 0 meclizine 25 mg tablet 25 mg PO TID PRNRF: 0 Discontinued polyethylene glycol 3350 17 gram/dose powder 238 g PO ONCE Qty: 238 RF: 0 bisacodyl [Dulcolax (bisacodyl)] 5 mg tablet,delayed release (DR/EC) 5 mg PO ONCE Qty: 4 RF: 0 Discharge Instructions Instructions: Colonoscopy (GEN) Additional Instructions: Findings: Follow up: Please call if you develop: fevers >101.5 Nausea or Vomiting Abdominal pain that is not transient DAY SURGERY UNIT POST ENDOSCOPY INSTRUCTIONS 1. Because there will be medication in your system for the next 24 hours, you may feel a little sleepy. Your coordination will be affected. Therefore: a. Do not drive or operate dangerous equipment for 24 hours. b. Do not drink alcohol beverages for 24 hours (not even beer). c. Plan to go home and rest for the day. 2. Generally there are no restrictions on your activity after a day or so has gone by, but you may feel a bit fatigued for a few days. 3 After you arrive home you may have a light meal and return to a normal diet as you can tolerate it without feeling sick to your stomach. 4. After surgery, you may feel pain or discomfort. This should be only transient, but if it persists please contact your doctor. 5. If there are any questions regarding the findings of your procedure, please feel free to contact your doctor. 6. If you are unable to contact your doctor with a problem, contact the hospital at [phone]. 7. Continue all your regular medications unless directed otherwise. I understand the above instructions and have no questions. Signature of Patient or Responsible Adult Escort Date/Time Name of Responsible Adult Escort Signature of Nurse Date/Time Activity:: Activity as Tolerated Diet:: As Tolerated DS: Diagnosis Discharge Diagnosis (1) History of colonoscopy: Status: Chronic
--- NOTE | 2018-12-26 06:27 | W.PM.HP.N ---
Date of service: 12/26/18 Time of Service: 08:06 Assessment and Plan Assessment and plan (1) Encounter for screening colonoscopy: Status: Acute Assessment and plan: P\\ Colonoscopy under sedation The patient is here for Colonoscopy pre-op. Her last screening was in 2013 and was unremarkable. She has a family history of colon cancer in her paternal grandfather. She has not had any bowel habit changes. -Discussed colonoscopy bowel prep as well as the procedure. Discussed possible complications of the procedure to include bleeding, pain, perforation, missed small lesion/polyp, sore throat, aspiration and adverse reaction to the medications. Questions were answered to patient?s satisfaction. No guarantees were implied or given. She will hold her Lisinopril the morning of her procedure. History of Present Illness Narrative: 68 y/o female with history of vertigo and HTN presents for colonoscopy screening pre-op. Her last screening was in 2013, which was unremarkable. She reports a family history of colon cancer in his paternal grandfather. She denies any changes in bowel habits including bloody or black tarry stools, abdominal pain, diarrhea or constipation. She denies constitutional symptoms. Denies use of marijuana or any other recreational or illegal drugs. She denies chest pain, palpitations, dyspnea or dyspnea with exertion. She denies prior history or family history of adverse reactions or complications with anesthesia. She denies having any implanted metal in her body. No changes in her health since she was seen in the office. Review of Systems Cardiovascular Cardiovascular: Denies chest pain, Denies chest pain at rest, Denies chest pain with activity, Denies palpitations, Denies dyspnea and Denies dyspnea on exertion Respiratory Respiratory: Denies chest congestion, Denies cough, Denies dyspnea and Denies dyspnea on exertion Endocrine Endocrine: Denies palpitations [facility] Medical History (Updated 12/26/18 @ 07:50 by Lisa Zaldivar) ADD (attention deficit disorder) (Chronic) Adrenal incidentaloma (Acute) Anosmia (Acute) mild pt reports Colon polyp (Resolved) Depression (Chronic) History of cigarette smoking (Resolved) History of ganglion cyst (Acute) 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 reports to [facility], spending weekend and having cardiac workup, pt. informed no issues, 2008 Hypothyroidism (Chronic) Psoriasis (Chronic) Surgical History History of section (Chronic) History of cholecystectomy (Chronic) History of colonoscopy (Chronic ~12/11/18) 2014-normal Social History Smoking/Tobacco Use Status: Former Tobacco Use Quit Date: 02/08/08 Alcohol Intake: current Alcohol Intake frequency: a few times a week Alcohol type: wine and hard liquor Drug use: Never Substance use type: does not use and marijuana Details: alcohol: t-3, Pt. reports smoking hemp Current gender identity: female Do you feel safe at home: Yes Do you feel safe in your relationship?: Yes Meds Home Medications and Allergies Home Medications Medication Instructions Recorded Confirmed Type levothyroxine 112 mcg PO DAILY 06/21/13 12/26/18 History lisinopril 5 mg PO DAILY 06/21/13 12/26/18 History cholecalciferol (vitamin D3) 1,000 1,000 unit PO DAILY 06/22/18 12/26/18 History unit capsule ibuprofen 800 mg tablet 800 mg PO PRN PRN tab 06/22/18 12/26/18 History juice plus fiber PO 06/22/18 11/17/18 History omega-3 fatty acids 1,000 mg 1,000 mg PO DAILY PRN 06/22/18 12/26/18 History capsule meclizine 25 mg PO TID PRN 12/07/18 12/26/18 History Allergies Allergy/AdvReac Type Severity Reaction Status Date / Time No Known Allergies Allergy Unverified 12/26/18 07:41 Exam Const General: cooperative and comfortable Orientation: alert and oriented x3 HENMT Head: normocephalic and atraumatic Resp Effort & Inspection: normal respiratory effort Auscultation: clear to auscultation bilaterally Cardio Rate: regular rate Rhythm: regular rhythm
--- NOTE | 2018-12-26 06:31 | W.COLOREPORT ---
Date of service: 12/26/18 Time of Service: 11:25 Colonoscopy Report Date of procedure: 12/26/18 Pre-op diagnosis general: Colon Cancer Screening and Family history of colon cancer Procedure: Flexible sigmoidoscopy Surgeon: Kait Myers Anesthesia proc note operative: other (General/ ASA 2/Fredi Bal, MCKENZIE) Estimated blood loss (mL): 0 Pathology: none sent Complications: None Disposition: same day Indications: Mrs. Mendez is a pleasant 68-year-old female who was seen in the office for a follow-up colonoscopy. She had a colonoscopy 5 years ago which was unremarkable. She does have a family history of colon cancer. Risks, benefits and complications have been reviewed. Complications include but are not limited to bleeding, pain, perforation, missed small lesion/polyp, sore throat, aspiration and adverse reaction to the medications. Questions were entertained and answered to their satisfaction and they wished to proceed. No guarantees were given or implied. Prep: Miralax/Dulcolax Procedure Start Time: :25 Procedure End Time: 11:41 Findings: Unable to pass the colonoscope past the sigmoid colon due to a tortuous colon. After 16 minutes of trying to go past the sigmoid colon I stopped because there were also a lot of diverticula and I was afraid to injure the bowel. Procedure Description: After informed consent was obtained the patient was taken to the procedure room and placed in a left decubitous position. Monitors were applied and a time out was done. The patients name, date of , procedure, allergies to medications and metal in their body was reviewed. The patient was then sedated. Once sedated and comfortable a rectal exam was done. External exam was normal. Internal exam revealed a normal sphincter tone and no palpable masses. The scope was then introduced and retro-flexed. No internal hemorrhoids, masses or polyps were identified on retro-flexion. The scope was then advanced to the distal sigmoid colon. I could not move the scope safely past the sigmoid colon due to tortuosity. The patient also started to have pain and there were numerous diverticula so risk of perforation/injury was high. The scope was removed and the patient was woken up and taken back to Same day surgery in stable condition. The patient tolerated the procedure well and there were no immediate complications. Follow up: Patient had one polyp on her first colonoscopy. She has had colonoscopies every 5 years since then. HAs had 5 total. This would have been number 6. I don't think she needs another colonoscopy unless she develops GI symptoms.
--- NOTE | 2018-12-26 06:35 | W.PM.DSUDISC ---
Discharge Plan Disposition Patient Disposition: HOME Condition: Good Discharge Details Reason For Visit: Colon Cancer Screening Attending Provider: Kait Myers Primary Care Provider: Sofia Stubbs Home Meds and New Rx's Prescriptions: Continued omega-3 fatty acids 1,000 mg capsule 1,000 mg PO DAILY PRNRF: 0 cholecalciferol (vitamin D3) 1,000 unit capsule 1,000 unit PO DAILY RF: 0 juice plus fiber PO RF: 0 ibuprofen 800 mg tablet 800 mg PO PRN PRNRF: 0 lisinopril 5 MG tablet 5 mg PO DAILY RF: 0 levothyroxine 112 MCG tablet 112 mcg PO DAILY RF: 0 meclizine 25 mg tablet 25 mg PO TID PRNRF: 0 Discontinued polyethylene glycol 3350 17 gram/dose powder 238 g PO ONCE Qty: 238 RF: 0 bisacodyl [Dulcolax (bisacodyl)] 5 mg tablet,delayed release (DR/EC) 5 mg PO ONCE Qty: 4 RF: 0 Discharge Instructions Instructions: Colonoscopy (GEN), Diverticulosis (DC) Additional Instructions: Findings: Very tortuous colon. I was unable to to get the scope through the bowel due to a very curvy bowel. There was a sharp corner and a lot of diverticula. I was concerned that I could injure your bowel. Follow up: as needed. Please call if you develop: fevers >101.5 Nausea or Vomiting Abdominal pain that is not transient DAY SURGERY UNIT POST ENDOSCOPY INSTRUCTIONS 1. Because there will be medication in your system for the next 24 hours, you may feel a little sleepy. Your coordination will be affected. Therefore: a. Do not drive or operate dangerous equipment for 24 hours. b. Do not drink alcohol beverages for 24 hours (not even beer). c. Plan to go home and rest for the day. 2. Generally there are no restrictions on your activity after a day or so has gone by, but you may feel a bit fatigued for a few days. 3 After you arrive home you may have a light meal and return to a normal diet as you can tolerate it without feeling sick to your stomach. 4. After surgery, you may feel pain or discomfort. This should be only transient, but if it persists please contact your doctor. 5. If there are any questions regarding the findings of your procedure, please feel free to contact your doctor. 6. If you are unable to contact your doctor with a problem, contact the hospital at [phone]. 7. Continue all your regular medications unless directed otherwise. I understand the above instructions and have no questions. Signature of Patient or Responsible Adult Escort Date/Time Name of Responsible Adult Escort Signature of Nurse Date/Time Activity:: Activity as Tolerated Diet:: As Tolerated Discharge Orders Discharge Orders: Discharge Order (Routine); Ordered 12/26/18 Ordered By: Kait Myers DS: Diagnosis Discharge Diagnosis (1) Encounter for screening colonoscopy: Status: Acute (2) Family history of colon cancer: Status: Acute
[2018-12-26 07:50] VITALS: BP 107/75; PULSE 72; RESP 18; TEMP 36.5; O2SAT 96
[2018-12-26] MEDS: Lactated Ringers 1,000 ML 80 ML IV (10:45)
[2018-12-26 12:30] VITALS: BP 125/77; PULSE 62; RESP 18; TEMP 36.2; O2SAT 98
== END 2018-12-26 13:44 | disposition home or self-care (01) ==
LOC: SUR 07:15
PROVIDERS: PCP Nurse Practitioner; Visit Provider Surgery
PROC: 0DJD8ZZ Inspection of Lower Intestinal Tract, Via Natural or Artificial Opening Endoscopic (ICD-10-PCS; CPT 45378; principal; 2018-12-26 08:15)
DX: Z12.11 Encounter for screening for malignant neoplasm of colon (principal); Z80.0 Family history of malignant neoplasm of digestive organs; K57.30 Diverticulosis of large intestine without perforation or abscess without bleeding; Z86.010 Personal history of colon polyps; Q43.8 Other specified congenital malformations of intestine; Z53.09 Procedure and treatment not carried out because of other contraindication; I10 Essential (primary) hypertension
CPT/HCPCS: G0105; NC; J2250; J3010

== ENCOUNTER 2019-01-16 11:33 | Outpatient (CLI) | payer MEDICARE, BC, SELFPAY ==
[2019-01-16 13:20] LABS: Ferritin 18 ng/mL (8-252)
== END 2019-01-16 11:53 ==
PROVIDERS: PCP Nurse Practitioner; Visit Provider Nurse Practitioner
DX: M25.50 Pain in unspecified joint (principal)
CPT/HCPCS: 36415; 82728

== ENCOUNTER 2019-02-05 18:57 | Emergency (ER) | payer MEDICARE, BC, SELFPAY ==
[2019-02-05 19:02] VITALS: BP 144/86; PULSE 77; RESP 16; TEMP 36.8; O2SAT 98
--- NOTE | 2019-02-05 19:21 | W.ED.GENAD ---
Discharge Plan Disposition Patient Disposition: HOME Condition: Stable Discharge Details Chief Complaint: HeadInjury Clinical Impression: Laceration of scalp, Scalp injury Primary Care Provider: Sofia Stubbs ED Provider: Myles Hall Home Meds and New Rx's Prescriptions: Continued omega-3 fatty acids 1,000 mg capsule 1,000 mg PO DAILY PRNRF: 0 cholecalciferol (vitamin D3) 1,000 unit capsule 1,000 unit PO DAILY RF: 0 juice plus fiber PO RF: 0 ibuprofen 800 mg tablet 800 mg PO PRN PRNRF: 0 lisinopril 5 MG tablet 5 mg PO DAILY RF: 0 levothyroxine 112 MCG tablet 112 mcg PO DAILY RF: 0 meclizine 25 mg tablet 25 mg PO TID PRNRF: 0 Discharge Instructions Instructions: Contusion in Adults (ED), Head Injury (ED) Additional Instructions: Return for removal of madyson in 7 to 10 days time. May use Tylenol and/or ibuprofen as needed for pain. You were given 650 mg of Tylenol which may have every 6 hours, you may have ibuprofen 600 mg every 6-8 hours. Call your doctor's office to ensure that your tetanus does not need to be updated. Continue to ice to reduce pain and swelling. 20 minutes at a time. Return for any acute concern. Medical Decision Making 68-year-old female who is wearing yak tracks in the home, slipped and fell striking her head on the ground. She did not have a loss of consciousness. She denies neck/back/chest/abdominal or extremity pain. She is unsure of her tetanus status. She suffered a scalp laceration. She was referred for noncontrast CT scan to rule out skull fracture or intracranial injury. There is no acute findings. The wound was cleansed, irrigated, anesthetized with topical anesthetic, repaired with surgical madyson x2. Patient return to the ER for removal in 7 to 10 days time. She understands homecare as well as return indications for repeat evaluation. HPI General Mode of arrival: ambulatory. Date/Time Provider Initiated Documentation: 02/05/19 19:05. Limitations to Documentation: no limitations. Information obtained by: patient. History of Present Illness 68 year old F presents to the emergency department with the chief complaint of Fall in home with left posterior head injury, Quality is described as burning, and is localized to the head and left. Patient reports no radiation. Patient started experiencing this minute(s) and it has been constant. No relieving factors improve symptom(s), No exacerbating factors reported . Patient notes headaches; denies confusion, chest pain, loss of appetite, malaise, syncope and weakness. Patient did receive the following treatments prior to arrival, none Related Data Home Medications Medication Instructions Recorded Confirmed levothyroxine 112 mcg PO DAILY 06/21/13 02/05/19 lisinopril 5 mg PO DAILY 06/21/13 02/05/19 cholecalciferol (vitamin D3) 25 1,000 unit PO DAILY 06/22/18 02/05/19 mcg (1,000 unit) capsule ibuprofen 800 mg tablet 800 mg PO PRN PRN tab 06/22/18 02/05/19 juice plus fiber PO 06/22/18 11/17/18 omega-3 fatty acids 1,000 mg 1,000 mg PO DAILY PRN 06/22/18 02/05/19 capsule meclizine 25 mg PO TID PRN 12/07/18 02/05/19 Allergies Allergy/AdvReac Type Severity Reaction Status Date / Time No Known Allergies Allergy Unverified 02/05/19 19:06 General Stated Complaint: HeadInjury VERONICA: 4 Review of Systems Narrative: 6 systems reviewed and otherwise negative [facility] Medical History ADD (attention deficit disorder) (Chronic) Adrenal incidentaloma (Acute) Anosmia (Acute) mild pt reports Colon polyp (Resolved) Depression (Chronic) History of cigarette smoking (Resolved) History of ganglion cyst (Acute) 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 reports to [facility], spending weekend and having cardiac workup, pt. informed no issues, 2008 Hypothyroidism (Chronic) Psoriasis (Chronic) Surgical History History of section (Chronic) History of cholecystectomy (Chronic) History of colonoscopy (Chronic ~12/11/18) 2013-normal Social History Smoking/Tobacco Use Status: Former Tobacco Use Quit Date: 02/08/08 Alcohol Intake: current Alcohol Intake frequency: a few times a week Alcohol type: wine and hard liquor Drug use: Never Substance use type: does not use and marijuana Details: alcohol: t-3, Pt. reports smoking hemp Current gender identity: female Do you feel safe at home: Yes Do you feel safe in your relationship?: Yes Exam Narrative Exam Narrative: GEN: awake, alert, oriented 3. Pleasant, well groomed, interactive. HEAD: Normocephalic, left posterior curvilinear scalp laceration measuring 1 cm, no bony instability or tenderness. ENT: Mucous membranes moist, oropharynx unremarkable, External ear exam unremarkable EYES: PERRL, EOMI NECK: Full ROM, no LEANDRO, no menigismus CHEST/RESP: Nontender, clear to auscultation bilateral, no wheeze/rhonchi/rales CARDIOVASCULAR: RRR, no murmur, rub ebenezer. 2+ Rad pulse bilateral ABDOMEN: Soft, nontender, no mass. +Bowel sounds EXT: Full ROM, no edema, no rash Neuro: Grossly normal neurologic exam, conversant, interactive. Psych: Speech fluent, thoughts congruent, affect normal Course Vital Signs Vital signs: Vital Signs Temperature 36.8 C 02/05/19 19:02 Pulse 77 02/05/19 19:02 Respiratory Rate 16 02/05/19 19:02 Blood Pressure 144/86 H 02/05/19 19:02 Pulse Oximetry 98 02/05/19 19:02 Temperature 36.8 C 02/05/19 19:02 Temperature Source Temporal Artery Scan 02/05/19 19:02 Pulse 77 02/05/19 19:02 Respiratory Rate 16 02/05/19 19:02 Respiratory Effort Non-Labored 02/05/19 19:02 Respiratory Depth Normal 02/05/19 19:02 Respiratory Pattern Normal 02/05/19 19:02 Blood Pressure 144/86 H 02/05/19 19:02 Blood Pressure Position Sitting 02/05/19 19:02 Pulse Oximetry 98 02/05/19 19:02 Oxygen Delivery Method Room Air 02/05/19 19:02 Oxygen Flow Rate 0 02/05/19 19:02 Pain Level 6 02/05/19 19:02 Procedures Laceration Laceration 1: Site: scalp Side (If applicable): left Size (cm): 1 Description: linear Depth: simple, single layer Local Anesthetic: Lidocaine 1% Pre-repair: wound explored, irrigated extensively and deep structures intact Skin layer closed with: other (2 madyson)
--- NOTE | 2019-02-05 19:25 | DI.CT_ITS ---
EXAM: CT HEAD WO CT HEAD WO CLINICAL HISTORY: Fall, left posterior laceration, pain. Fall, left posterior laceration, pain TECHNIQUE: Imaging Protocol: Axial computed tomography images with coronal and sagittal reformatted images were created and reviewed COMPARISON: CT HEAD WO from 11/03/2018 FINDINGS: The ventricular system is normal in appearance. No evidence of acute intracranial hemorrhage, mass effect, or midline shift. The orbital structures are unremarkable. The temporal bone structures appear intact. Calvarium: Normal. Visualized Paranasal sinuses/Mastoids: Clear. IMPRESSION: Normal cranial CT. DATA REPOSITORY: All CT scans at this facility are submitted to the National Radiology Data Registry (NRDR) Dose Index Registry (DIR) with the [employer] (ACR). RADIATION OPTIMIZATION: All CT scans at this facility use at least one of these dose optimization te chniques: automated exposure control; mA and/or kV adjustment per patient size (includes targeted exa ms where dose is matched to clinical indication); or iterative reconstruction.
--- NOTE | 2019-02-05 19:41 | DI.VRAD_ITS ---
PROCEDURE INFORMATION: Exam: CT Head Without Contrast Exam date and time: 02/05/2019 7:27 PM Age: 68 years old Clinical indication: Injury or trauma; Initial encounter; Blunt trauma (contusions or hematomas) and laceration; With loss of consciousness; Not specified; Without residual foreign body; Head, generalized; Injury date: 02/05/19; Injury details: Fall with left posterior laceration, pain TECHNIQUE: Imaging protocol: Computed tomography of the head without contrast. Radiation optimization: All CT scans at this facility use at least one of these dose optimization techniques: automated exposure control; mA and/or kV adjustment per patient size (includes targeted exams where dose is matched to clinical indication); or iterative reconstruction. COMPARISON: CT HEAD WO 11/03/2018 11:44 PM FINDINGS: Brain: Normal. No hemorrhage. Unremarkable white matter. No mass effect. Ventricles: Normal. No ventriculomegaly. Bones/joints: No skull fracture. Sinuses: Visualized sinuses are unremarkable. No fluid levels. Mastoid air cells: Visualized mastoid air cells are well aerated. Soft tissues: Left posterior scalp parietal region laceration and minor hematoma. No foreign body. IMPRESSION: 1. Left posterior scalp laceration with no foreign body. Minor hematoma. 2. No skull fracture. 3. No intracranial hemorrhage. Dictated and Authenticated by: Gato Arcos MD. Ordering:NAEEM Bueno MD
== END 2019-02-05 19:55 | disposition home or self-care (01) ==
PROVIDERS: Emergency Provider Emergency Medicine; PCP Nurse Practitioner
DX: S01.01XA Laceration without foreign body of scalp, initial encounter (principal); W01.10XA Fall on same level from slipping, tripping and stumbling with subsequent striking against unspecified object, initial encounter; I10 Essential (primary) hypertension
CPT/HCPCS: 12001; 99284; 70450; 99283

== ENCOUNTER 2019-02-13 15:41 | Emergency (ER) | payer MEDICARE, BC, SELFPAY ==
[2019-02-13 15:45] VITALS: BP 139/86; PULSE 69; RESP 18; TEMP 35.8; O2SAT 99
--- NOTE | 2019-02-13 16:07 | W.ED.GENAD ---
Discharge Plan Discharge Details Chief Complaint: SutureRem Primary Care Provider: Sofia Stubbs ED Provider: Eula Khanna Home Meds and New Rx's Prescriptions: No Action omega-3 fatty acids 1,000 mg capsule 1,000 mg PO DAILY PRNRF: 0 cholecalciferol (vitamin D3) 1,000 unit capsule 1,000 unit PO DAILY RF: 0 juice plus fiber PO RF: 0 ibuprofen 800 mg tablet 800 mg PO PRN PRNRF: 0 lisinopril 5 MG tablet 5 mg PO DAILY RF: 0 levothyroxine 112 MCG tablet 112 mcg PO DAILY RF: 0 meclizine 25 mg tablet 25 mg PO TID PRNRF: 0 Medical Decision Making Patient is a 5-year-old female presents today with chief complaint of stable medical. On exam, no signs of infection. No erythema, warmth, drainage. No area of swelling or fluctuance. Denies any headache residual discomfort from the wound. Tristan were easily removed by myself with no complications. Patient was given return precautions, particular signs of infection. All the questions and concerns were addressed she is in agreement this plan. HPI General Mode of arrival: ambulatory. Date/Time Provider Initiated Documentation: 02/13/19 15:46. Limitations to Documentation: no limitations. Information obtained by: patient and RN notes reviewed. HPI Narrative: Patient is a pleasant 5-year-old female presents today with chief complaint of staple removal. Patient she tristan placed in the left posterior aspect of her scalp 8 days ago. Denies any fevers or chills. No discharge. Related Data Home Medications Medication Instructions Recorded Confirmed levothyroxine 112 mcg PO DAILY 06/21/13 02/13/19 lisinopril 5 mg PO DAILY 06/21/13 02/13/19 cholecalciferol (vitamin D3) 25 1,000 unit PO DAILY 06/22/18 02/13/19 mcg (1,000 unit) capsule ibuprofen 800 mg tablet 800 mg PO PRN PRN tab 06/22/18 02/13/19 juice plus fiber PO 06/22/18 11/17/18 omega-3 fatty acids 1,000 mg 1,000 mg PO DAILY PRN 06/22/18 02/13/19 capsule meclizine 25 mg PO TID PRN 12/07/18 02/13/19 Allergies Allergy/AdvReac Type Severity Reaction Status Date / Time No Known Allergies Allergy Unverified 02/13/19 15:50 General Stated Complaint: SutureRem VERONICA: 5 Review of Systems Constitutional Constitutional: Reports as per HPI, Denies chills, Denies fatigue, Denies fever(s), Denies frequent falls and Denies headache(s) Eyes Eyes: Denies change in vision ENT Ears, Nose, Mouth, and Throat: Denies headache(s) Cardiovascular Cardiovascular: Denies chest pain, Denies dyspnea and Denies dyspnea on exertion Respiratory Respiratory: Denies cough, Denies dyspnea and Denies dyspnea on exertion Gastrointestinal Gastrointestinal: Denies abdominal pain, Denies change in bowel habits and Denies fecal incontinence Genitourinary Genitourinary: Reports as per HPI, Denies urinary incontinence and Denies urinary hesitancy Musculoskeletal Musculoskeletal: Reports as per HPI, Reports back pain, Denies muscle weakness, Denies numbness, Denies radiating pain into limb, Reports stiffness and Denies tingling Integumentary/Breasts Skin/Breast: Reports as per HPI and Denies rash Neurologic Neurologic: Reports as per HPI, Denies frequent falls, Denies headache(s), Denies focal weakness, Denies numbness, Denies radicular pain, Denies sensory deficit, Denies tingling and Denies paresthesias Endocrine Endocrine: Denies fatigue [facility] Medical History ADD (attention deficit disorder) (Chronic) Adrenal incidentaloma (Acute) Anosmia (Acute) mild pt reports Colon polyp (Resolved) Depression (Chronic) History of cigarette smoking (Resolved) History of ganglion cyst (Acute) 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 reports to [facility], spending weekend and having cardiac workup, pt. informed no issues, 2008 Hypothyroidism (Chronic) Psoriasis (Chronic) Surgical History History of section (Chronic) History of cholecystectomy (Chronic) History of colonoscopy (Chronic ~12/11/18) 2013-normal Social History Smoking/Tobacco Use Status: Former Tobacco Use Quit Date: 02/08/08 Alcohol Intake: current Alcohol Intake frequency: a few times a week Alcohol type: wine and hard liquor Drug use: Never Substance use type: does not use and marijuana Details: alcohol: t-3, Pt. reports smoking hemp Current gender identity: female Do you feel safe at home: Yes Do you feel safe in your relationship?: Yes Exam Const General: cooperative, healthy appearing, comfortable, no acute distress, well developed and well groomed Nutritional Appearance: average body habitus and well nourished Orientation: alert and awake [facility] Head: abnormal to inspection (Well-healing laceration posterior left aspect of the scalp with 2 tristan ) and no palpable skull fracture Ears: hearing grossly normal bilaterally Face and sinus: normal facial exam Eyes General: appearance normal, both eyes and all related structures Neck Neck: normal visual inspection, full ROM, no lymphadenopathy and no meningeal signs Resp Effort & Inspection: normal respiratory effort and able to speak in complete sentences Auscultation: clear to auscultation bilaterally, no rales, no rhonchi and no wheezes Cardio Rate: regular rate Rhythm: regular rhythm Heart Sounds: S1 normal and S2 normal Skin Trauma: laceration (Healing well) Neuro General: alert and awake Cognition: normal cognition Speech: speech normal Gait: normal gait Extrem General: normal to inspection, full ROM, normal capillary refill, no joint enlargement, no pedal edema, no calf tenderness and normal gait Psych Appearance: grossly normal and well kempt Mental Status: mental status grossly normal Speech and Movement: speech and movement normal Course Vital Signs Vital signs: Vital Signs Temperature 35.8 C L 02/13/19 15:45 Pulse 69 02/13/19 15:45 Respiratory Rate 18 02/13/19 15:45 Blood Pressure 139/86 02/13/19 15:45 Pulse Oximetry 99 02/13/19 15:45 Temperature 35.8 C L 02/13/19 15:45 Temperature Source Temporal Artery Scan 02/13/19 15:45 Pulse 69 02/13/19 15:45 Respiratory Rate 18 02/13/19 15:45 Respiratory Effort Non-Labored 02/13/19 15:44 Blood Pressure 139/86 02/13/19 15:45 Blood Pressure Position Sitting 02/13/19 15:45 Pulse Oximetry 99 02/13/19 15:45 Oxygen Delivery Method Room Air 02/13/19 15:45 Oxygen Flow Rate 0 02/13/19 15:45
== END 2019-02-13 15:54 ==
PROVIDERS: Emergency Provider Physician Assistant; PCP Nurse Practitioner
DX: S01.01XD Laceration without foreign body of scalp, subsequent encounter (principal); W01.10XD Fall on same level from slipping, tripping and stumbling with subsequent striking against unspecified object, subsequent encounter; Z48.02 Encounter for removal of sutures

== ENCOUNTER 2019-05-02 16:19 | Outpatient (REF) | payer MEDICARE, BC, SELFPAY ==
[2019-05-04 12:04] LABS: SARS-CoV-2 RNA Undetected (Undetected); SARS-CoV-2 Specimen Source Nasopharynx
== END 2019-05-02 16:39 ==
LOC: LBO 16:19
PROVIDERS: PCP Nurse Practitioner; Visit Provider Nurse Practitioner Family
DX: Z20.828 Contact with and (suspected) exposure to other viral communicable diseases (principal)
CPT/HCPCS: U0003

== ENCOUNTER 2019-07-24 00:31 | Outpatient (CLI) | payer MEDICARE, BC, SELFPAY ==
--- NOTE | 2019-07-24 08:42 | DI.MAMMO_ITS ---
EXAM: MAMMO SCREENING CLINICAL HISTORY: SCREENING,Z12.39 TECHNIQUE: Mammograms were interpreted according to the usual protocol including computer analysis w [employer] CAD system, tomosynthesis and C-view imaging. COMPARISON: 2012 through 2018 FINDINGS: The breasts are composed of scattered fibroglandular densities, Breast Density category B. No suspicious masses or suspicious microcalcifications are seen. Vascular calcifications are noted. No skin thickening or abnormal axillary lymph nodes are seen. There has been no significant change from prior exams. IMPRESSION: BI-RADS Category 1, yearly screening mammography is recommended. Breast Density Category B, scattered fibroglandular densities.
== END 2019-07-24 00:51 ==
PROVIDERS: PCP Nurse Practitioner; Visit Provider Nurse Practitioner
DX: Z12.31 Encounter for screening mammogram for malignant neoplasm of breast (principal)
CPT/HCPCS: 77063; 77067

== ENCOUNTER 2019-07-24 01:42 | Outpatient (CLI) | payer MEDICARE, BC, SELFPAY ==
[2019-07-24 10:40] LABS: Ferritin 44 ng/mL (8-252)
== END 2019-07-24 02:02 ==
PROVIDERS: PCP Nurse Practitioner; Visit Provider Nurse Practitioner
DX: M25.561 Pain in right knee (principal)
CPT/HCPCS: 36415; 82728

== ENCOUNTER 2019-11-02 19:30 | Outpatient (REF) | payer MEDICARE, BC, SELFPAY ==
[2019-11-02 20:22] LABS: ALT 26 U/L (14-59); AST 17 U/L (15-37); Alkaline Phosphatase 74 U/L (46-116); BUN 16 mg/dL (7-18); Bilirubin, Total 0.9 mg/dL (0.2-1.0); CREATININE 0.83 mg/dL (0.55-1.02); Calcium 9.2 mg/dL (8.5-10.1); Calculated LDL 132 mg/dL (<100); Chloride 103 mmol/L (98-107); Cholesterol 211 mg/dL (<200); Glucose 101 mg/dL (74-106); HDL Cholesterol 67 mg/dL (40-60); Potassium 4.3 mmol/L (3.5-5.1); Sodium 139 mmol/L (136-145); Total Protein 6.8 g/dL (6.4-8.2); Triglyceride 60 mg/dL (<150)
== END 2019-11-02 19:50 ==
LOC: NCHCN 19:30
PROVIDERS: PCP Nurse Practitioner; Visit Provider Nurse Practitioner
DX: I10 Essential (primary) hypertension (principal); E66.9 Obesity, unspecified; E03.9 Hypothyroidism, unspecified
CPT/HCPCS: 80053; 80061; 84443

== ENCOUNTER 2019-11-14 08:46 | Outpatient (REF) | payer MEDICARE, BC, SELFPAY ==
[2019-11-14 20:15] LABS: Ferritin 112 ng/mL (8-252)
== END 2019-11-14 09:06 ==
LOC: NCHCN 08:46
PROVIDERS: PCP Nurse Practitioner; Visit Provider Nurse Practitioner
DX: M25.552 Pain in left hip (principal); G47.61 Periodic limb movement disorder
CPT/HCPCS: 82728

== ENCOUNTER 2019-12-19 11:31 | Outpatient (REF) | payer MEDICARE, BC, SELFPAY ==
[2019-12-24 12:02] LABS: Patient Race White; SARS-CoV-2 RNA Undetected (Undetected); SARS-CoV-2 Specimen Source Nasal
== END 2019-12-19 11:51 ==
LOC: NCHCN 11:31
PROVIDERS: PCP Nurse Practitioner; Visit Provider Physician Assistant Medical
DX: R52 Pain, unspecified (principal)
CPT/HCPCS: U0003

== ENCOUNTER 2020-07-16 11:20 | Outpatient (CLI) | payer MEDICARE, BC, SELFPAY ==
--- NOTE | 2020-07-16 | DI.RAD_ITS ---
Exam(s) XR HIP PELVIS ADULT BL EXAM: XR HIP PELVIS ADULT BL CLINICAL HISTORY: BILAT HIP PAIN, M25.559. TECHNIQUE: 2D digital imaging was performed. COMPARISON: No exams were available for comparison FINDINGS: BONES: No acute fracture is present. No bony destructive lesion is seen. JOINTS: No dislocation present. The joint spaces are well maintained. SOFT TISSUE: Normal. IMPRESSION: Unrmarkable radiographs of bilat hips. Unremarkable radiographs of the pelvis DATA REPOSITORY: RADIATION DOSE DELIVERED:
--- OUTSIDE RECORDS SUMMARY | 2020-07-17 11:22 | XMS_ITS ---
:1950 Author Care Team Providers Name Role Phone [facility] Primary Care Provider [phone] PAULO JONES Primary Care Provider [phone] Allergies Code Code System Name Reaction Severity Status Onset NKDA ? Medications Name Status Start Date Stop Date ? ? ascorbic acid (vitamin C) 500 mg tablet Active 04/17/19 20 Not available Take 1 tablet every day by oral route for 90 days. clobetasol 0.05 % topical cream Active ? Not available APPLY A THIN LAYER TO THE AFFECTED AREA(S) PRN ferrous sulfate 325 mg (65 mg iron) tablet Active 04/16 Not available Take 1 tablet every day by oral route for 90 days. Juice Plus Fibre Active ? Not available levothyroxine 112 mcg tablet Active ? Not available Take 1 tablet every day by oral route. lisinopril 5 mg tablet Active ? Not avail able Take 1 tablet every day by oral route. multivitamin Completed ? 2019 1 tab daily [place] 3 Active ? Not available 1000 cap daily ropinirole 1 mg tablet Active 2019 Not avail able take 1 PO 2-3 hours before bedtime ropinirole 2 mg tablet Active ? Not avail able Take 1 PO 2-3 hours before bedtime triamcinolone Active ? Not available PRN Vitamin D3 25 mcg (1,000 unit) capsule Active ? Not available Take 1 capsule every day by oral route. zolpidem 5 mg tablet Completed ? 01/16/2019 take 1-2 PO night of sleep study PRN Problems Name Status Onset Date Source ? Hypothyroidism Active 09/19/2018 ? Disorder of Lipid Metabolism Active 09/19/2018 ? Obesity Active 09/19/2018 ? Depressive Disorder Active 09/19/2018 ? Hypertensive Disorder Active 09/19/2018 ? Polyp Active 09/19/2018 ? Psoriasis Active 09/19/2018 ? Sense of Smell Altered Active 09/19/2018 ? Ex-smoker Active 09/19/2018 ? Cyst Active 09/19/2018 ? Lentigo Active 09/19/2018 ? Attention Deficit Hyperactivity Disorder, Active 2018 ? 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 Hypersomnia Active 11/07/2018 ? 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 Obstructive Sleep Apnea Syndrome Active 01/16/2019 ? Periodic Limb Movement Disorder Active ? ? Procedures None recorded. Results Lab Results Date Name Specimen Result Interpretation Description Value Range Status Address ? 07/24/2019 Ferritin, ? No observation ? ? ? [facility] or recorded. [facility]: [address], [place] 01/16/2019 Ferritin, ? No observation ? ? ? [facility] or recorded. [facility]: [address] [place] [facility] Past Encounters 07/19/2019 Obstructive Sleep Apnea Syndrome; Period ic Limb Movement Disorder; Pain in Right Knee Allyson Alonzo CONFIDENTIAL SECRETARY: [address] [place] [phone], Ph. 2019 Periodic Limb Movement Disorder; Obstruc tive Sleep Apnea Syndrome Allyson Alonzo CONFIDENTIAL SECRETARY: [address] [place] [phone], Ph. 01/16/2019 Periodic Limb Movement Disorder; Obstruc tive Sleep Apnea Syndrome; Joint Pain Allyson Alonzo, CONFIDENTIAL SECRETARY: [address] [place] [phone], Ph. Social History Tobacco Smoking Status Former Smoker Notes: quit 27 10 Vaccine List None recorded. Plan of Care Reminders Provider Appointments None ? ? recorded. Lab None ? ? recorded. Referral None ? ? recorded. Procedures None ? ? recorded. Surgeries None ? ? recorded. Imaging None ? ? recorded. Vitals 07/19/2019 09:45AM Office 30 Height Weight BMI Blood Pressure 156.21 cm 75.75 kg 31 kg/m2 118/74 mm[Hg] 2019 09:15AM Office 30 Height Weight BMI Blood Pressure 156.21 cm 76.84 kg 31.5 kg/m2 110/70 mm[Hg] 01/16/2019 09:30AM Office 30 Height Weight BMI Blood Pressure 156.21 cm 76.57 kg 31.4 kg/m2 112/64 mm[Hg] 11/07/2018 10:00AM New Patient 45 Height Weight BMI Blood Pressure 156.21 cm 75.89 kg 31.1 kg/m2 118/78 mm[Hg]
== END 2020-07-16 11:40 ==
PROVIDERS: PCP Nurse Practitioner; Visit Provider Nurse Practitioner
DX: M25.551 Pain in right hip (principal); M25.552 Pain in left hip
CPT/HCPCS: 73521

== ENCOUNTER 2020-07-16 12:55 | Outpatient (REF) | payer MEDICARE, BC, SELFPAY ==
[2020-07-16 13:36] LABS: HCT 40.1 % (36.0-46.0); HGB 13.4 g/dL (11.2-15.7); MCH 32.1 pg (27.0-33.0); MCHC 33.4 % (32.0-36.0); MCV 95.9 fL (80-95); MPV 10.2 fL (8.0-11.0); Platelet Count 311 10^3/uL (130-400); RBC 4.18 10^6/uL (3.93-5.22); RDW 14.3 % (11.7-14.6); RDW-SD 50.2 fL; WBC 5.42 10^3/uL (4.4-10.8)
[2020-07-16 14:24] LABS: Ferritin 93 ng/mL (8-252); TSH (W/Ref FT4) 2.45 uIU/mL (0.36-3.74)
[2020-07-16 14:35] LABS: ESR 10 mm/hr (0-30)
[2020-07-16 21:17] LABS: Rheumatoid Factor <8.6 IU/mL (<12.0)
[2020-07-17 09:48] LABS: Lyme Ab w Rflx to Lyme Confirm Negative (Negative)
[2020-07-17 15:23] LABS: ANA Interpretation Negative (Negative)
[2020-07-18 19:20] LABS: Anaplasma phagocytophilum Negative (Negative); B. miyamotoi PCR Negative (Negative); Babesia divergens/MO-1 Negative (Negative); Babesia duncani Negative (Negative); Babesia microti Negative (Negative); Ehrlichia chaffeensis Negative (Negative); Ehrlichia ewingii/canis Negative (Negative); Ehrlichia muris eauclairensis Negative (Negative)
== END 2020-07-16 12:56 | disposition home or self-care (01) ==
LOC: NCHCN 12:55
PROVIDERS: PCP Nurse Practitioner; Visit Provider Nurse Practitioner
DX: E61.1 Iron deficiency (principal); M25.59 Pain in other specified joint; M79.18 Myalgia, other site; M25.551 Pain in right hip; M25.552 Pain in left hip; E03.9 Hypothyroidism, unspecified
CPT/HCPCS: 85027; 85652; 87798; 82728; 84443; 86038; 86431; 86618

== ENCOUNTER 2020-08-20 02:19 | Outpatient (CLI) | payer MEDICARE, BC, SELFPAY ==
--- NOTE | 2020-08-20 | DI.DEXA_ITS ---
Exam(s) XR DEXA BONE DENSITY W/WO DECLAN EXAM: XR DEXA BONE DENSITY W/WO DECLAN CLINICAL HISTORY: OSTEOPOROSIS,M81.0 TECHNIQUE: [employer] C densitometer COMPARISON: 2016 FINDINGS: Lateral view of the thoracic and lumbar spine shows no evidence of compression fractures. Bone mineral density measurements of the lumbar spine correspond to a total T-score of -2.5, in the mildly osteoporotic range. This is not significantly changed from 2016. Bone mineral density measurements of the left hip correspond to a total T-score of -0.8. The femora l neck T-score is -1.6, in the osteopenic range.. This represents a 12.7 percent decrease when comp ared with 2016. The left forearm bone mineral density measurements correspond to a T-score of the distal 3rd of -1.7 , consistent with osteopenia. This represents a 9 percent decrease compared with 2016.. IMPRESSION: Stable mild osteoporosis of the lumbar spine. Osteopenia of the left hip and left forearm with decre ase in bone density compared to 2016.
== END 2020-08-20 02:39 ==
PROVIDERS: PCP Nurse Practitioner; Visit Provider Nurse Practitioner
DX: M81.0 Age-related osteoporosis without current pathological fracture (principal); M85.89 Other specified disorders of bone density and structure, multiple sites
CPT/HCPCS: 77080

== ENCOUNTER 2021-02-02 21:07 | Outpatient (REF) | payer MEDICARE, BC, SELFPAY ==
[2021-02-02 22:32] LABS: Anion Gap 6.4 mmol/L (3-11); BUN 17 mg/dL (7-18); CO2 30.6 mmol/L (21.0-32.0); CREATININE 0.8 mg/dL (0.55-1.02); Calcium 8.8 mg/dL (8.5-10.1); Chloride 104 mmol/L (98-107); Ferritin 112 ng/mL (8-252); Glucose 95 mg/dL (74-106); Potassium 3.8 mmol/L (3.5-5.1); Sodium 141 mmol/L (136-145); TSH (W/Ref FT4) 0.19 uIU/mL (0.36-3.74)
[2021-02-02 22:57] LABS: FREE T4 1.36 ng/dL (0.76-1.46)
== END 2021-02-02 21:08 | disposition home or self-care (01) ==
LOC: LBN 21:07
PROVIDERS: PCP Nurse Practitioner; Visit Provider Family Medicine
DX: E61.1 Iron deficiency (principal); E03.9 Hypothyroidism, unspecified; R39.15 Urgency of urination; I10 Essential (primary) hypertension
CPT/HCPCS: 80048; 87077; 82728; 84439; 84443; 87086; 87186

== ENCOUNTER 2021-02-11 17:29 | Outpatient (CLI) | payer MEDICARE, BC, SELFPAY ==
--- NOTE | 2021-02-11 | DI.RAD_ITS ---
Exam(s) XR LUMBAR SPINE COMPLETE XR SACROILIAC JOINTS EXAM: XR LUMBAR SPINE COMPLETE CLINICAL HISTORY: LOW BACK PAIN M54.50 TECHNIQUE: COMPARISON: CR XR DEXA BONE DENSITY W/WO DECLAN from 08/20/2020 CR XR SACROILIAC JOINTS from 02/11/2021 FINDINGS: Five views of the lumbosacral spine were obtained along with 4 additional views of the SI joints. Th e SI joints appear well maintained with no evidence of fusion or sacroiliitis. The intervertebral di sc spaces appear narrowed at L4-5 and L5-S1. There are moderate hypertrophic degenerative changes of the facet joints in the lower lumbar spine. There is a mild anterior pseudo spondylolisthesis of L4 on L5. No gross spondylolysis is identified. Endplate hypertrophic changes are also noted throughout the lumbar region, most marked at L5-S1. IMPRESSION: Degenerative changes of the lower lumbar spine. Unremarkable appearance of the SI joints bilaterally . RADIATION DOSE DELIVERED: Total DLP
--- NOTE | 2021-02-11 | DI.RAD_ITS ---
Exam(s) XR KNEE RT 3V AP,LAT,CARLO EXAM: XR KNEE RT 3V AP,LAT,CARLO CLINICAL HISTORY: RT KNEE PAIN M25.561 TECHNIQUE: COMPARISON: CR LEFT KNEE 3 VIEW COMPLETE from 05/20/2014 FINDINGS: Four views were obtained. There may be a small knee joint effusion. There are calcifications projec phyllis posterior to the knee joint which are likely to represent intra-articular bodies. There is sever e narrowing of the medial tibiofemoral cartilaginous joint space. There are moderate marginal osteop hytes seen involving all 3 joints of the knee. IMPRESSION: Severe DJD predominantly involving medial tibiofemoral joint. RADIATION DOSE DELIVERED: Total DLP
== END 2021-02-11 17:49 ==
PROVIDERS: PCP Nurse Practitioner; Visit Provider Physician Assistant Medical
DX: M54.59 Other low back pain (principal); M47.817 Spondylosis without myelopathy or radiculopathy, lumbosacral region; M43.16 Spondylolisthesis, lumbar region; M51.37 Other intervertebral disc degeneration, lumbosacral region; M25.561 Pain in right knee; M17.11 Unilateral primary osteoarthritis, right knee; M53.3 Sacrococcygeal disorders, not elsewhere classified
CPT/HCPCS: 73562; 72110; 72202

== ENCOUNTER 2021-03-24 14:25 | Outpatient (REF) | payer MEDICARE, BC, SELFPAY ==
[2021-03-24 19:00] LABS: FREE T4 1.06 ng/dL (0.76-1.46)
== END 2021-03-24 14:26 | disposition home or self-care (01) ==
LOC: NCHCN 14:25
PROVIDERS: PCP Nurse Practitioner; Visit Provider Family Medicine
DX: E03.9 Hypothyroidism, unspecified (principal)
CPT/HCPCS: 84439; 84443

== ENCOUNTER 2021-04-25 10:36 | Outpatient (REF) | payer MEDICARE, BC, SELFPAY | END 2021-04-25 10:37 | disposition home or self-care (01) | LOC: LBN 10:36 | PROVIDERS: PCP Nurse Practitioner; Visit Provider Nurse Practitioner Family | DX: N39.0 Urinary tract infection, site not specified (principal) | CPT/HCPCS: 87086 ==

== ENCOUNTER 2021-05-15 17:36 | Outpatient (REF) | payer MEDICARE, BC, SELFPAY ==
[2021-05-15 18:46] LABS: HCT 40.6 % (36.0-46.0); HGB 13.9 g/dL (11.2-15.7); MCHC 34.2 % (32.0-36.0); MCV 102.3 fL (80-95); MPV 10.5 fL (8.0-11.0); Platelet Count 309 10^3/uL (130-400); RBC 3.97 10^6/uL (3.93-5.22); RDW 14.6 % (11.7-14.6); RDW-SD 55.3 fL; WBC 6.37 10^3/uL (4.4-10.8)
[2021-05-15 19:45] LABS: TSH (W/Ref FT4) 2.41 uIU/mL (0.36-3.74); Vitamin B12 98 pg/mL (193-986)
== END 2021-05-15 17:37 | disposition home or self-care (01) ==
LOC: NCHCN 17:36
PROVIDERS: PCP Nurse Practitioner; Visit Provider Family Medicine
DX: E03.9 Hypothyroidism, unspecified (principal)
CPT/HCPCS: 85027; 82607; 84443

== ENCOUNTER 2021-08-04 16:15 | Outpatient (REF) | payer MEDICARE, BC, SELFPAY ==
[2021-08-04 20:31] LABS: Vitamin B12 700 pg/mL (193-986)
[2021-08-06 10:59] LABS: Hepatitis C Ab w Rflx HCV PCR Negative (Negative)
== END 2021-08-04 16:16 | disposition home or self-care (01) ==
LOC: NCHCN 16:15
PROVIDERS: PCP Nurse Practitioner; Visit Provider Family Medicine
DX: E53.8 Deficiency of other specified B group vitamins (principal); Z11.59 Encounter for screening for other viral diseases; Z00.00 Encounter for general adult medical examination without abnormal findings
CPT/HCPCS: 86803; 82607

== ENCOUNTER → 2021-08-12 02:13 | Outpatient (CLI) | payer MEDICARE, BC, SELFPAY ==
--- NOTE | 2021-08-12 09:00 | DI.MAMMO_ITS ---
Exam(s) MAMMO SCREENING EXAM: MAMMO SCREENING CLINICAL HISTORY: screening,z12.39 TECHNIQUE: Mammograms were interpreted according to the usual protocol including computer analysis w [facility] [employer] CAD system, tomosynthesis and C-view imaging. COMPARISON: 2012 through 2019 FINDINGS: The breasts are composed of scattered fibroglandular densities, Breast Density category B. No suspicious masses or suspicious microcalcifications are seen. Vascular calcifications are inciden tally noted. No skin thickening or abnormal axillary lymph nodes are seen. There has been no significant change from prior exams. IMPRESSION: BI-RADS Category 1, Negative mammogram Yearly screening mammography is recommended. Breast Density - Category B, scattered fibroglandular densities. A negative radiographic report should not delay biopsy if a dominant or clinically suspicious mass is present. Up to ten percent of cancers are not identified on mammography. A negative report may reinforce clinical impression. Adenosis and dense breasts may obscure an underlying neoplasm. False positive reports average 6 to 10%. Patient will receive a letter notifying them of these results.
== END ==
PROVIDERS: PCP Nurse Practitioner; Visit Provider Obstetrics & Gynecology Gynecology
DX: Z12.31 Encounter for screening mammogram for malignant neoplasm of breast (principal)
CPT/HCPCS: 77063; 77067

== ENCOUNTER → 2021-09-03 02:27 | Outpatient (CLI) | payer MEDICARE, BC, SELFPAY ==
--- NOTE | 2021-09-03 07:00 | DI.US_ITS ---
Exam(s) US THYROID EXAM: US THYROID CLINICAL HISTORY: L sided neck mass, THYROID NODULE, E04.1. TECHNIQUE: Ultrasound thyroid performed using standard protocol. COMPARISON: No exams were available for comparison FINDINGS: ISTHMUS: 1 mm RIGHT LOBE: Size: 4 x 1.1 x 1.5 cm Echogenicity: Normal. Vascularity: Normal. Nodules: None. LEFT LOBE: Size: 3.9 x 1 x 1.3 cm Echogenicity: Normal. Vascularity: Normal. Nodules: None. OTHER FINDINGS: None. IMPRESSION: Normal sonographic appearance of the thyroid gland. No thyroid nodules. DATA REPOSITORY:
== END ==
PROVIDERS: PCP Nurse Practitioner; Visit Provider Obstetrics & Gynecology Gynecology
DX: E04.1 Nontoxic single thyroid nodule (principal)
CPT/HCPCS: 76536

== ENCOUNTER → 2021-09-28 10:18 | Outpatient (BNVA) | payer MEDICARE, BC, SELFPAY | PROVIDERS: PCP Family Medicine; Referring Provider Nurse Practitioner; Visit Provider Student in an Organized Health Care Education/Training Program | DX: M25.551 Pain in right hip (principal); M25.552 Pain in left hip | CPT/HCPCS: 99214 ==

== ENCOUNTER → 2021-10-08 04:10 | Outpatient (CLI) | payer MEDICARE, BC, SELFPAY ==
--- NOTE | 2021-10-08 14:10 | DI.RAD_ITS ---
Exam(s) RF JOINT INJECTION FLUORO GUID EXAM: RF JOINT INJECTION FLUORO GUID CLINICAL HISTORY: R HIP INJ, RT HIP PAIN, M25.551 TECHNIQUE: Fluoroscopy provided. Radiologist not present. CONTRAST MATERIAL: None COMPARISON: No exams were available for comparison FINDINGS: Fluoroscopy was provided for Dr. Bran during fluoroscopy for right hip injection.. Submitted image(s) reveal needle at junction femoral. Please refer to the procedure report for complete details. Cumulative Dose: vicenta Ross=0.431 mGy IMPRESSION: RADIATION DOSE DELIVERED:
--- NOTE | 2021-10-08 14:23 | DI.RAD_ITS ---
Exam(s) RF JOINT INJECTION FLUORO GUID EXAM: RF JOINT INJECTION FLUORO GUID CLINICAL HISTORY: L HIP INJ, LT HIP PAIN, M25.552 TECHNIQUE: 2D and realtime digital imaging was performed. COMPARISON: No exams were available for comparison FINDINGS: Fluoroscopy was utilized by Dr. Bran during left hip injection. Hard copy shows needle placement and injection in the left hip joint. IMPRESSION: RADIATION DOSE DELIVERED: vicenta Ross=0.431 mGy Total DLP
--- NOTE | 2021-10-08 15:27 | W.PROCNOTE ---
Date of service: 10/08/21 Time of Service: 14:20 Procedure Note Date of procedure: 10/08/21 Procedure: Bilateral Hip Injection with Fluoroscopic Guidance Surgeon/Proceduralist/Physician: Joao Bran Procedure Diagnosis: Bilateral Hip Pain Procedure Indications: Jacey has had persistent pain of the BILATERAL hip and groin. Noninvasive measures have been tried. To serve as both diagnostic and therapeutic, an injection under fluoroscopy was recommended. I had discussed the risks of the procedure and the patient elected to proceed. Procedure Description: Jacey was greeted in the flouroscopy room. The consent was reviewed with the patient and signed. The patient was then placed in the supine position on the fluoroscopy table. The RIGHT hip was then prepped with Chloraprep. The anterolateral injection starting point was identiifed by bony landmarks and fluoroscopy. The skin and soft tissue in the tract of the injection was anesthetized with 1% Lidocaine. A spinal needle was then inserted deep into the hip joint at the level of the lateral femoral neck under fluoroscopic guidance. A small amount of Omnipaque solution was injected to confirm intraarticular placement. Once confirmed, the hip was injected with 5cc of 0.5% Bupivicaine and 80mg of Depo-Medrol. A bandaid was placed on the injection site. The LEFT hip was then prepped with Chloraprep. The anterolateral injection starting point was identiifed by bony landmarks and fluoroscopy. The skin and soft tissue in the tract of the injection was anesthetized with 1% Lidocaine. A spinal needle was then inserted deep into the hip joint at the level of the lateral femoral neck under fluoroscopic guidance. A small amount of Omnipaque solution was injected to confirm intraarticular placement. Once confirmed, the hip was injected with 5cc of 0.5% Bupivicaine and 80mg of Depo-Medrol. A bandaid was placed on the injection site. The patient tolerated the procedure well.
[2021-10-08] MEDS: Omnipaque 300 MG/ML 10 ML BTL IJ (16:15)
[2021-10-08] MEDS: Bupivacaine 0.5% Pres-Free 10 ML VIAL 5 ML IJ (16:17)
[2021-10-08] MEDS: methylPREDNISolone ACETATE 80 MG/ML VIAL IM (16:18)
== END ==
PROVIDERS: PCP Family Medicine; Visit Provider Student in an Organized Health Care Education/Training Program
DX: M25.552 Pain in left hip (principal); M25.551 Pain in right hip
CPT/HCPCS: 20610; 77002; J1040

== ENCOUNTER → 2021-12-21 10:21 | Outpatient (BNVA) | payer MEDICARE, BC, SELFPAY | PROVIDERS: PCP Family Medicine; Referring Provider Family Medicine; Visit Provider Student in an Organized Health Care Education/Training Program | DX: M48.061 Spinal stenosis, lumbar region without neurogenic claudication (principal) | CPT/HCPCS: 99213 ==

== ENCOUNTER → 2022-01-12 02:41 | Outpatient (CLI) | payer MEDICARE, BC, SELFPAY ==
--- NOTE | 2022-01-12 07:30 | DI.MRI_ITS ---
Exam(s) MR LUMBAR SPINE WO EXAM: MR LUMBAR SPINE WO CLINICAL HISTORY: PAIN,lumbar spinal stenosis,m48.061. TECHNIQUE: Multiplanar multisequence MRI of the Lumbar spine was performed. COMPARISON: CR XR LUMBAR SPINE COMPLETE from 02/11/2021 FINDINGS: Bones: The last intervertebral disc space is designated the L5/S1 level for the numbering purpose of this examination. The vertebral body heights are well maintained. Alignment is satisfactory. Degene rative endplate signal changes are seen at several levels of the lumbar spine. Cord: The conus tip ends at the L1 level. It is of normal size and signal intensity. T12-L1: No disc herniations or bulges are present. No central spinal canal or neural foraminal stenos is. L1-2: No disc herniations or bulges are present. No central spinal canal or neural foraminal stenosis . L2-3: No disc herniations or bulges are present. No central spinal canal or neural foraminal stenosis . L3-4: There is a diffuse disc bulge slightly eccentric to the left. No significant central spinal can al stenosis is seen. No significant right neural foraminal stenosis is present. There is mild left ne ural foraminal stenosis. L4-5: There is a mild diffuse disc bulge. Facet arthropathy is present. No significant central spinal canal stenosis is present. There is mild bilateral neural foraminal narrowing. L5-S1: Degenerative changes of the facets are seen. There is mild prominence of the disc at this leve l. No significant central spinal canal or right neural foraminal stenosis. There is moderate left noah ral foraminal stenosis. Soft tissues: The visualized SI joints and sacrum are well maintained. The paraspinal soft tissues ar e unremarkable. IMPRESSION: Multilevel degenerative changes in the lumbar spine. The findings are most marked from L3-4 through L 5-S1. DATA REPOSITORY:
== END ==
PROVIDERS: PCP Family Medicine; Visit Provider Student in an Organized Health Care Education/Training Program
DX: M48.061 Spinal stenosis, lumbar region without neurogenic claudication (principal); M47.816 Spondylosis without myelopathy or radiculopathy, lumbar region
CPT/HCPCS: 72148

== ENCOUNTER 2022-02-04 14:29 | Outpatient (CLI) | payer MEDICARE, BC, SELFPAY ==
--- NOTE | 2022-02-04 06:00 | DI.RAD_ITS ---
Exam(s) XR PAIN CLINIC LUMBAR SP 2V EXAM: XR PAIN CLINIC LUMBAR SP 2V CLINICAL HISTORY: Dx: Lumbar Radiculopathy TECHNIQUE: 2D and realtime digital imaging was performed. Radiologist not present. CONTRAST MATERIAL: None. COMPARISON: No exams were available for comparison FINDINGS: Fluoroscopy was provided for pain management therapy. Please refer to procedure report or details. Cumulative dose: Ka,r=3.0 mGy IMPRESSION: RADIATION DOSE DELIVERED:
[2022-02-04 14:41] VITALS: BP 138/86; PULSE 61; RESP 20; TEMP 36.7; O2SAT 96
--- NOTE | 2022-02-04 14:44 | PDOC.PAIN ---
Date of service: 02/04/22 Time of Service: 14:47 Pain Clinic Procedure Note Procedure Note Procedure Note: Lumbar Epidural Steroid Injection Procedure Note Pre-operative diagnosis: suspected lumbar radiculopathy Post-operative diagnosis: same as above COMMENTS: patient is a direct referral from Dr Bran for consideration of LESI for both diagnostic and possible therapeutic purposes. Patient was evaluated in clinic by Dr Bran in 12/2021 with back pain and bilateral hip/groin pain. Intra-artricular hip injection failed to achieve significant pain reduction. MRI L spine was done which showed eccentric disc bulge at L3-4. There is also some canal stenosis at L2-3. Jacey Mendez has been referred to the [facility] for lumbar epidural steroid injection. The patient was greeted by the nurse who verified patients name and . Patient was then taken to the fluoroscopy suite. The patient was interviewed and the medial record reviewed. There were no medical, pharmacologic, radiographic, or other structural contraindications to attempting fluoroscopically guided lumbar epidural steroid injection. Risks and expected side effects as well as potential benefits of the procedure were reviewed and voiced concerns expressed. The patient consent form was signed and witnessed. Standard patient time-out procedure was performed. The patient was placed in the prone position on the fluoroscopy table and automated blood pressure cuff and pulse oximeter applied. The skin entry point for entering/approaching the epidural space by a L2-3 and marked. Following thorough chlorhexadine preparation of the skin and draping and 1% lidocaine infiltration of the skin entry point and subcutaneous tissues, a 18 gauge Touhy needle was placed under fluoroscopic guidance and with loss of resistance technique into the epidural space. Needle tip placement and depth were aided and confirmed by fluoroscopy. There was no paresthesia or return of blood or CSF through the needle. 1 cc's of Omnipaque 240 was injected with clear epidural spread confirmed with fluoroscopy. 80mg depomedrol was injected. There was not any unusual discomfort expressed by Jacey Mendez. Patient's vital signs were stable throughout the procedure and were as recorded in nursing records. Follow up plans and appointments were discussed with patient. Post procedure instruction was given as documented in nursing records and having met discharge criteria and was discharged from the [facility]. COMMENTS: If this procedure is helpful, it can be completed up to 3 times per 12 months. Pre-procedure VAS score 6/10. Post-procedure VAS score 4/10. Bing Darling MD Pain Management
[2022-02-04] MEDS: Omnipaque 240 MG/ML 50 ML BTL IJ (15:08)
[2022-02-04] MEDS: methylPREDNISolone ACETATE 80 MG/ML VIAL IJ (15:09)
[2022-02-04 15:22] VITALS: BP 143/79; PULSE 59; RESP 12; O2SAT 99
== END 2022-02-04 14:30 | disposition home or self-care (01) ==
LOC: PC 14:30
PROVIDERS: PCP Family Medicine; Visit Provider Internal Medicine
DX: M54.16 Radiculopathy, lumbar region (principal); M54.50 Low back pain, unspecified
CPT/HCPCS: 62323; 72100; J1040; Q9967

== ENCOUNTER 2022-06-03 17:10 | Outpatient (REF) | payer MEDICARE, BC, SELFPAY ==
[2022-06-03 21:17] LABS: Anion Gap 7.4 mmol/L (3-11); BUN 18 mg/dL (7-18); CO2 29.6 mmol/L (21.0-32.0); CREATININE 0.9 mg/dL (0.55-1.02); Calcium 9.1 mg/dL (8.5-10.1); Chloride 107 mmol/L (98-107); Estimated GFR 67.08 (mL/min/1.73m2); Glucose 90 mg/dL (74-106); Potassium 4.2 mmol/L (3.5-5.1); Sodium 144 mmol/L (136-145); TSH (W/Ref FT4) 4.71 uIU/mL (0.36-3.74); Vitamin B12 1198 pg/mL (193-986)
[2022-06-03 21:40] LABS: FREE T4 1.06 ng/dL (0.76-1.46)
== END 2022-06-03 17:11 | disposition home or self-care (01) ==
LOC: NCHCN 17:10
PROVIDERS: PCP Family Medicine; Visit Provider Family Medicine
DX: E03.9 Hypothyroidism, unspecified (principal); E53.8 Deficiency of other specified B group vitamins; I10 Essential (primary) hypertension
CPT/HCPCS: 80048; 82607; 84439; 84443

== ENCOUNTER 2022-06-18 18:21 | Outpatient (REF) | payer MEDICARE, BC, SELFPAY ==
[2022-06-18 20:51] LABS: Abs Immature Grans 0.16 10^3/uL (0.0-0.06); HCT 41.4 % (36.0-46.0); MCH 30.2 pg (27.0-33.0); MCHC 33.8 % (32.0-36.0); MCV 89 fL (80-95); MPV 10.7 fL (8.0-11.0); Platelet Count 403 10^3/uL (130-400); RBC 4.63 10^6/uL (3.93-5.22); RDW 13.2 % (11.7-14.6); RDW-SD 43.7 fL; WBC 9.87 10^3/uL (4.4-10.8)
[2022-06-18 20:58] LABS: Anion Gap 9.7 mmol/L (3-11); BUN 14 mg/dL (7-18); CO2 29.3 mmol/L (21.0-32.0); Calcium 9.9 mg/dL (8.5-10.1); Chloride 101 mmol/L (98-107); Estimated GFR 59.12 (mL/min/1.73m2); Glucose 100 mg/dL (74-106); Potassium 4.6 mmol/L (3.5-5.1); Sodium 140 mmol/L (136-145)
[2022-06-18 21:28] LABS: Absolute Lymphocyte Count 2.37 10^3/uL (1.2-3.4); Absolute Monocyte Count 0.79 10^3/uL (0.1-0.8); Absolute Neutrophil Count 6.42 10^3/uL (1.2-6.7); Atypical Lymphocytes % 1; Diff Comment Manual Differential; RBC Morphology Normal
[2022-06-18 21:35] LABS: RBC 0-2 HPF (0-2)
[2022-06-18 21:36] LABS: Bacteria Rare HPF (Negative); C & S Indicated? C&S Done As Ordered; Casts Negative LPF (Negative); Crystals Negative HPF (Negative); Epithelial Cells Few HPF (Negative); Mucus Negative (Negative)
[2022-06-21 10:02] LABS: Lyme Ab w Rflx to Lyme Confirm Negative (Negative)
[2022-06-22 20:52] LABS: Anaplasma phagocytophilum Negative (Negative); B. miyamotoi PCR Negative (Negative); Babesia divergens/MO-1 Negative (Negative); Babesia duncani Negative (Negative); Babesia microti Negative (Negative); Ehrlichia chaffeensis Negative (Negative); Ehrlichia ewingii/canis Negative (Negative); Ehrlichia muris eauclairensis Negative (Negative)
== END 2022-06-18 18:22 | disposition home or self-care (01) ==
LOC: LBN 18:21
PROVIDERS: PCP Family Medicine; Visit Provider Physician Assistant Medical
DX: M25.50 Pain in unspecified joint (principal); R30.0 Dysuria; R50.9 Fever, unspecified
CPT/HCPCS: 80048; 87798; 81015; 85025; 86618; 87086

== ENCOUNTER 2022-08-11 16:19 | Outpatient (CLI) | payer MEDICARE, BC, SELFPAY ==
--- NOTE | 2022-08-11 07:45 | DI.RAD_ITS ---
Exam(s) XR PAIN CLINIC LUMBAR SP 2V EXAM: XR PAIN CLINIC LUMBAR SP 2V CLINICAL HISTORY: Dx: Lumbar Radiculopathy. TECHNIQUE: Fluoroscopy was provided for the referring physician for guidance with performing pain cl inic injection procedure. COMPARISON: No exams were available for comparison FINDINGS: Please see procedure note for details. Fluoro time: 15.8 seconds RADIATION DOSE DELIVERED: Ka,r=6.16 mGy
[2022-08-11 16:42] VITALS: BP 134/88; PULSE 60; RESP 20; TEMP 36.8; O2SAT 95
--- NOTE | 2022-08-11 17:19 | PDOC.PAIN_ITS ---
Date of service: 08/11/22 Time of Service: 17:21 Pain Managment Procedure Note Procedure Note Procedure Note: PROCEDURE NOTE LUMBAR EPIDURAL STEROID INJECTION Date of Service: August 11, 2022 Patient:Jacey Wells? Provider: Fredi Arredondo DO, MPH Jacey Mendez has been referred to the [facility] for a lumbar epidural steroid injection. Pre-operative diagnosis: Lumbosacral Radiculopathy Post-operative diagnosis: Same Pre-Procedure Pain: VAS= 8/10 Comments: She last had this procedure on 02/04/[address] Darling and had >3 months of >50% pain relief. Her low back and leg pain has returned. Jacey was interviewed and the medical record was reviewed.? There were no medical, pharmacologic, radiographic or other structural contraindications to attempting fluoroscopically guided Lumbar epidural steroid injection.? Risks, potential side effects, indications, and potential benefits of the procedure were reviewed with Jacey.? Questions and concerns were addressed.? After it was clear that Jacey was fully informed about the procedure, the printed consent form was signed by the patient and myself.? Jacey was placed in the prone position on the fluoroscopy table and automated blood pressure cuff and pulse oximeter applied. The skin entry point for entering/approaching the epidural space for the lumbar epidural steroid injection was marked. Following thorough chlorhexadine preparation of the skin and draping and 1% lidocaine infiltration of the skin entry point and subcutaneous tissues, an 18 gauge Touhy needle was placed and advanced under fluoroscopic guidance and with loss of resistance technique into the L5-S1 epidural space. Needle tip placement and depth were aided and confirmed by fluoroscopy. There was no paresthesia or return of blood or CSF through the needle. 1 mls of Omnipaque 240 was injected with clear epidural spread confirmed with fluoroscopy. 80 mg of Depo-Medrol was? injected. This was followed by 1 ml of preservative-free normal saline to flush the steroid out of the needle. There was no unusual discomfort expressed by Jacey. The needle was withdrawn without difficulty. (49 mls of Omnipaque was wasted) Jacey was observed and was without hemodynamic, neurologic, or allergic reactions.? Fluoroscopic images were digitally archived. Jacey's vital signs were stable throughout the procedure and were as recorded in nursing records. Follow up plans and appointments were discussed with Jacey. Post procedure instruction was given as documented in nursing records and having met discharge criteria Jacey was discharged from the [facility]. COMMENTS: No apparent complications. Post-procedure pain: VAS= 3/10. Jacey to contact [facility] as needed. If at least 50% improvement in pain and/or function for at least 3 months is achieved, this procedure can be repeated. I personally performed this entire procedure. FREDI ARREDONDO DO, MPH ABPMR-subspecialty board certification in Pain Medicine [facility]
[2022-08-11] MEDS: methylPREDNISolone ACETATE 80 MG/ML VIAL IJ (17:25)
[2022-08-11] MEDS: Omnipaque 240 MG/ML 50 ML BTL IJ (17:25)
[2022-08-11 17:26] VITALS: BP 145/74; PULSE 56; RESP 13; O2SAT 98
== END 2022-08-11 16:20 | disposition home or self-care (01) ==
LOC: PC 16:19
PROVIDERS: PCP Family Medicine; Visit Provider Preventive Medicine Occupational Medicine
DX: M54.17 Radiculopathy, lumbosacral region (principal); M54.50 Low back pain, unspecified
CPT/HCPCS: 62323; 72100; J1040; Q9967

== ENCOUNTER 2022-08-17 02:18 | Outpatient (CLI) | payer MEDICARE, BC, SELFPAY ==
--- NOTE | 2022-08-17 11:45 | DI.MAMMO_ITS ---
Exam(s) MAMMO SCREENING EXAM: MAMMO SCREENING CLINICAL HISTORY: screening. TECHNIQUE: Bilateral full field digital CC and MLO mammographic images were obtained with 3D tomosyn thesis and utilizing computer aided detection (CAD). COMPARISON: Prior mammograms were reviewed. FINDINGS: Two findings in left breast. In the right breast there are prominent retroareolar region ducts and there is asymmetric nodular den sity located 4 cm in from the nipple, measuring approximately 8 x 6 mm. Spot compression view and ul trasound recommended. No malignant-appearing microcalcification groups is region or elsewhere in either breast. There is no significant architectural distortion nor skin thickening-retraction. IMPRESSION: 1. No radiographic evidence of malignancy in left breast. 2. Right breast nodular densities. Spot compression views and ultrasound recommended. BI-RADS Category 0 - Assessment Incomplete: Need additional imaging evaluation Breast Density - Category B - Scattered areas of fibroglandular density Breast density Category C or D implies that the patient has dense breast tissue. Dense breast tissue can make it harder to find cancer on a mammogram. Dense breast tissue is also associated with an incr eased risk of breast cancer. This information about the result of the mammogram report was provided to the patient to raise their awareness. Use this report when you speak with the patient about their risks for breast cancer, which includes their family history. At that time, you may recommend additional screening tests (Ultrasoun d or MRI) as these tests may add significant information. A negative radiographic report should not delay biopsy if a dominant or clinically suspicious mass is present. Up to ten percent of cancers are not identified on mammography. A negative report may reinforce clinical impression. Adenosis and dense breasts may obscure an underlying neoplasm. False positive reports average 6 to 10%. Patient will receive a letter notifying them of these results.
== END 2022-08-17 02:38 ==
LOC: DI 02:19
PROVIDERS: PCP Family Medicine; Visit Provider Obstetrics & Gynecology Gynecology
DX: Z12.31 Encounter for screening mammogram for malignant neoplasm of breast (principal)
CPT/HCPCS: 77063; 77067

== ENCOUNTER 2022-08-30 03:23 | Outpatient (CLI) | payer MEDICARE, BC, SELFPAY ==
--- NOTE | 2022-08-30 | DI.US_ITS ---
Exam(s) MG MAMMO SCREEN CALL BACK UNI US BREAST RT COMPLETE EXAM: MG MAMMO SCREEN CALL BACK UNI and U/S breast RT complete CLINICAL HISTORY: RIGHT BREAST NODULAR DENSITIES R92.8 ABNL MAMMO. TECHNIQUE: Craniocaudal and mediolateral oblique Full Field Digital Mammography views of the right b reast with Computer Aided Diagnosis followed by Tomosynthesis and right breast ultrasound. COMPARISON: Comparison is made with prior examinations. FINDINGS: Mammography/Tomosynthesis: Masses/Architectural Distortion: The areas of nodularity are less prominent/concerning on the additio nal views. There are no areas of architectural distortion. Microcalcifictions: No suspicious pleomorphic-type are seen. Skin Thickening/Nipple Retraction: None. Complete right breast US: Echotexture: Normal appearance of the glandular tissue. Shadowing: No suspicious foci. Cyst: None. Solid lesions: None seen. Ductal dilation: Retroareolar ducts are present. There is some debris seen in a few of the retroareo lar ducts but no intraductal masses identified. IMPRESSION: 1. No definite evidence of malignancy is noted. 2. A six-month follow-up right mammogram and ultrasound are requested for re-evaluation. 3. The findings were discussed with the patient on the date of the examination. BI-RADS Category 3 - 6 month - Probably Benign Finding: Recommend follow-up imaging in 6 months Breast Density - Category B - Scattered areas of fibroglandular density Breast density Category C or D implies that the patient has dense breast tissue. Dense breast tissue can make it harder to find cancer on a mammogram. Dense breast tissue is also associated with an incr eased risk of breast cancer. This information about the result of the mammogram report was provided to the patient to raise their awareness. Use this report when you speak with the patient about their risks for breast cancer, which includes their family history. At that time, you may recommend additional screening tests (Ultrasoun d or MRI) as these tests may add significant information. A negative radiographic report should not delay biopsy if a dominant or clinically suspicious mass is present. Up to ten percent of cancers are not identified on mammography. A negative report may reinforce clinical impression. Adenosis and dense breasts may obscure an underlying neoplasm. False positive reports average 6 to 10%. Patient will receive a letter notifying them of these results.
== END 2022-08-30 03:43 ==
LOC: DI 03:23
PROVIDERS: PCP Family Medicine; Visit Provider Obstetrics & Gynecology Gynecology
DX: Z12.31 Encounter for screening mammogram for malignant neoplasm of breast (principal); R92.8 Other abnormal and inconclusive findings on diagnostic imaging of breast
CPT/HCPCS: 76642; 77063; 77067

== ENCOUNTER 2022-10-04 18:43 | Outpatient (REF) | payer MEDICARE, BC, SELFPAY ==
[2022-10-04 20:44] LABS: TSH 2.41 uIU/mL (0.36-3.74)
== END 2022-10-04 18:44 | disposition home or self-care (01) ==
LOC: NCHCN 18:43
PROVIDERS: PCP Family Medicine; Visit Provider Family Medicine
DX: E03.9 Hypothyroidism, unspecified (principal)
CPT/HCPCS: 84443

== ENCOUNTER → 2023-02-15 01:52 | Outpatient (CLI) | payer MEDICARE, SELFPAY ==
--- NOTE | 2023-02-15 | DI.MAMMO_ITS ---
Exam(s) MG MAMMO DIAGNOSTIC UNI US BREAST RT COMPLETE EXAM: MG MAMMO DIAGNOSTIC UNI-RIGHT AND COMPLETE RIGHT BREAST ULTRASOUND CLINICAL HISTORY: 6 MO F/U ABNL MAMMO, R92.8,Z87.898. TECHNIQUE: Unilateral right breast CC and MLO mammographic images were obtained with 3D tomosynthesi s technique and utilizing computer aided detection (CAD). Complete right breast ultrasound was also performed including all 4 quadrants as well as the retroare olar region and the right axilla. COMPARISON: Prior mammograms and ultrasound were reviewed, the most recent being August 2022.. FINDINGS: DIAGNOSTIC RIGHT BREAST MAMMOGRAM: Previously described retroareolar region findings appear unchanged . COMPLETE RIGHT BREAST ULTRASOUND: Slightly prominent retroareolar ducts are again noted with a somewh at beaded pattern, similar to previous. There is some mild debris noted within some of these ducts b ut no truly discernible mass. No new focal ultrasound findings in all 4 quadrants No ipsilateral adenopathy in the right axilla. IMPRESSION: Stable benign-appearing findings Appropriate follow-up is to keep this patient on her yearly mammogram schedule which implies that her next mammogram would be in 6 months. I recommend repeating the ultrasound examination at that time. . The patient was informed of the findings and follow-up recommendations by myself prior to leaving the department today. BI-RADS Category 3 - 6 month - Probably Benign Finding: Recommend follow-up mammography in 6 months Breast Density - Category B - Scattered areas of fibroglandular density Breast density Category C or D implies that the patient has dense breast tissue. Dense breast tissue can make it harder to find cancer on a mammogram. Dense breast tissue is also associated with an incr eased risk of breast cancer. This information about the result of the mammogram report was provided to the patient to raise their awareness. Use this report when you speak with the patient about their risks for breast cancer, which includes their family history. At that time, you may recommend additional screening tests (Ultrasoun d or MRI) as these tests may add significant information. A negative radiographic report should not delay biopsy if a dominant or clinically suspicious mass is present. Up to ten percent of cancers are not identified on mammography. A negative report may reinforce clinical impression. Adenosis and dense breasts may obscure an underlying neoplasm. False positive reports average 6 to 10%. Patient will receive a letter notifying them of these results.
== END ==
PROVIDERS: PCP Family Medicine; Visit Provider Obstetrics & Gynecology Gynecology
DX: Z12.31 Encounter for screening mammogram for malignant neoplasm of breast (principal); R92.8 Other abnormal and inconclusive findings on diagnostic imaging of breast
CPT/HCPCS: 76642; 77061; 77065; G0279

== ENCOUNTER 2023-02-16 14:37 | Outpatient (CLI) | payer MEDICARE, SELFPAY ==
--- NOTE | 2023-02-16 06:00 | DI.RAD_ITS ---
Exam(s) XR PAIN CLINIC LUMBAR SP 2V EXAM: XR PAIN CLINIC LUMBAR SP 2V CLINICAL HISTORY: Dx: Lumbar Radiculopathy TECHNIQUE: 2D and realtime digital imaging was performed. CONTRAST MATERIAL: Refer to procedure report. COMPARISON: No exams were available for comparison FINDINGS: Fluoroscopy was provided for Dr. Blackburn during the performance of a lumbar epidural steroid injection. Please refer to the procedure report for complete details. Ka,r=6.4 mGy IMPRESSION:
[2023-02-16 17:01] VITALS: BP 127/87; PULSE 65; RESP 20; TEMP 36.7; O2SAT 96
[2023-02-16 17:34] VITALS: BP 151/87; PULSE 70; RESP 19; O2SAT 99
[2023-02-16] MEDS: Omnipaque 240 MG/ML 50 ML BTL IJ (17:36)
[2023-02-16] MEDS: methylPREDNISolone ACETATE 80 MG/ML VIAL IJ (17:37)
--- NOTE | 2023-02-23 10:16 | PDOC.PAIN_ITS ---
Date of service: 02/16/23 Time of Service: 12:30 Pain Managment Procedure Note Procedure Note Procedure Note: PROCEDURE NOTE LUMBAR EPIDURAL STEROID INJECTION Date of Service: February 16, 2023 Patient:Jacey Wells? Provider: Fredi Blackburn DO, MPH Jacey Mendez has been referred to the [facility] for a lumbar epidural steroid injection. Pre-operative diagnosis: Lumbosacral Radiculopathy Post-operative diagnosis: Same Pre-Procedure Pain: VAS= 6 /10 Comments: She has previously been evaluated in the clinic and her right legs radicular symptoms have not changed. Jacey was interviewed and the medical record was reviewed.? There were no medical, pharmacologic, radiographic or other structural contraindications to attempting fluoroscopically guided Lumbar epidural steroid injection.? Risks, potential side effects, indications, and potential benefits of the procedure were reviewed with Jacey.? Questions and concerns were addressed.? After it was clear that Jacey was fully informed about the procedure, the printed consent form was signed by the patient and myself.? Jacey was placed in the prone position on the fluoroscopy table and automated blood pressure cuff and pulse oximeter applied. The skin entry point for entering/approaching the epidural space for the lumbar epidural steroid injection was marked. Following thorough chlorhexadine preparation of the skin and draping and 1% lidocaine infiltration of the skin entry point and subcutaneous tissues, an 18 gauge Touhy needle was placed and advanced under fluoroscopic guidance and with loss of resistance technique into the L5-S1 epidural space. Needle tip placement and depth were aided and confirmed by fluoroscopy. There was no paresthesia or return of blood or CSF through the needle. 1 mls of Omnipaque 240 was injected with clear epidural spread confirmed with fluoroscopy. 80 mg of Depo-Medrol was? injected. This was followed by 1 ml of preservative-free normal saline to flush the steroid out of the needle. There was no unusual discomfort expressed by Jacey. The needle was withdrawn without difficulty. (49 mls of Omnipaque was wasted) Jacey was observed and was without hemodynamic, neurologic, or allergic reactions.? Fluoroscopic images were digitally archived. Jacey's vital signs were stable throughout the procedure and were as recorded in nursing records. Follow up plans and appointments were discussed with Jacey. Post procedure instruction was given as documented in nursing records and having met discharge criteria Jacey was [facility] from the [facility]. COMMENTS: No apparent complications. Post-procedure pain: VAS= 1/10. Jacey to contact [facility] as needed. If at least 50% improvement in pain and/or function for at least 3 months is achieved, this procedure can be repeated. I personally performed this entire procedure. FREDI BLACKBURN DO, MPH ABPMR-subspecialty board certification in Pain Medicine [facility]
== END 2023-02-16 14:38 | disposition home or self-care (01) ==
PROVIDERS: PCP Family Medicine; Visit Provider Preventive Medicine Occupational Medicine
DX: M54.50 Low back pain, unspecified (principal); M54.17 Radiculopathy, lumbosacral region
CPT/HCPCS: 00123; 62323; 72100; J1040; Q9967

== ENCOUNTER → 2023-04-27 04:05 | Outpatient (CLI) | payer MEDICARE, SELFPAY ==
--- NOTE | 2023-04-27 | DI.CT_ITS ---
Exam(s) CT ABDOMEN WO/W EXAM: CT ABDOMEN WO/W CLINICAL HISTORY: F/U MASS LT ADRENAL GLAND,E27.8. TECHNIQUE: Imaging Protocol: Axial computed tomography images with coronal and sagittal reformatted images were created and reviewed CONTRAST MATERIAL: Intravenous: Omnipaque 350 Contrast volume:100 mL contrast route:IV - Oral: / no COMPARISON: CT ABD PELVIS WITH CONTRAST from 02/20/2015 FINDINGS: ABDOMEN: Lung Bases: Normal where visualized. Liver: Normal density. No measurable mass. Gallbladder and biliary tract: There are clips in the gallbladder fossa. There is no evidence of intr ahepatic or extrahepatic ductal dilation. Pancreas: Normal density, no abnormal calcifications or inflammatory process. Spleen: Normal. Kidneys: Normal size, contour and axis. No radiodense stones or obstructive uropathy. No masses seen. Adrenal glands: Right adrenal gland appears normal. The left adrenal gland is been replaced by calci fication. There is no mass. No follow-up is necessary. Abdominal Aorta: Abdominal portion non-dilated. Lymph nodes: Within normal limits. Bones: Unremarkable for age. IMPRESSION: Left adrenal gland is replaced by calcification. No mass is present. Findings likely secondary to p rior adrenal hemorrhage. RADIATION DOSE DELIVERED: Total DLP DATA REPOSITORY: All CT scans at this facility are submitted to the National Radiology Data Registry (NRDR) Dose Index Registry (DIR) with the [employer] (ACR). RADIATION OPTIMIZATION: All CT scans at this facility use at least one of these dose optimization te chniques: automated exposure control; mA and/or kV adjustment per patient size (includes targeted exa ms where dose is matched to clinical indication); or iterative reconstruction.
[2023-04-27 09:30] LABS: Estimated GFR 58.75 (mL/min/1.73m2)
[2023-04-27] MEDS: Normal Saline - Diluent 50 ML VIAL IJ (09:46)
[2023-04-27] MEDS: Omnipaque 350 MG/ML 100 ML BTL IJ (09:46)
== END ==
PROVIDERS: PCP Family Medicine; Visit Provider Family Medicine
DX: E27.8 Other specified disorders of adrenal gland (principal); Z00.00 Encounter for general adult medical examination without abnormal findings
CPT/HCPCS: 74170; 82565; J3490

== ENCOUNTER → 2023-06-13 13:18 | Outpatient (CLI) | payer MEDICARE, SELFPAY ==
--- NOTE | 2023-06-13 | DI.US_ITS ---
Exam(s) US LOWER EXTREMITY VENOUS LT EXAM: US LOWER EXTREMITY VENOUS LT CLINICAL HISTORY: EDEMA LT LOWER LEG, ? DVT,r60.O. TECHNIQUE: Lower extremity venous ultrasound performed using grayscale, color-flow, and spectral Do ppler analysis. COMPARISON: No exams were available for comparison FINDINGS: The common femoral, femoral and popliteal veins demonstrate normal compressibility, augmentation, and color Doppler. The posterior tibial veins are patent. No saphenous vein thrombosis or other superfi cial venous thrombosis is seen. A Stanley's cyst is noted measuring 6.1 x 1.5 x 4.3 cm. IMPRESSION: Stanley cyst. No evidence of DVT. DATA REPOSITORY:
== END ==
PROVIDERS: PCP Family Medicine; Visit Provider Physician Assistant
DX: R60.0 Localized edema (principal); M71.22 Synovial cyst of popliteal space [Baker], left knee
CPT/HCPCS: 93971

== ENCOUNTER 2023-06-13 13:51 | Outpatient (REF) | payer MEDICARE, SELFPAY ==
--- NOTE | 2023-06-13 10:15 | SKI_PTH ---
PATIENT: Jacey Mendez LOC: [facility] U#:[id number] AGE/SX: 73/F ROOM: RE06/13/[address]: Eileen Dejesus : 1950 BED: DIS: 06/13/2023 SPEC #: [id number] RECD: 06/13/23 17:55 STATUS: TED REQ #: [id number] JAGDEEP: 06/13/23 10:[address]: Eileen Dejesus DEPT: Surgical Specimen RECD BY: Johanny Hdz ENTERED: 06/13/23 17:57 SP TYPE: SKI OTHR DR: Horacio Keller Tissues: 1 - SKIN BIOPSY(SHAVE/PUNCH) Procedures: SKIN LEVEL 4 Comments: [id number]
== END 2023-06-13 13:52 | disposition home or self-care (01) ==
LOC: LBN 13:51
PROVIDERS: PCP Family Medicine; Visit Provider Physician Assistant
DX: C44.729 Squamous cell carcinoma of skin of left lower limb, including hip (principal)
CPT/HCPCS: 88305

== ENCOUNTER 2023-07-01 09:09 | Outpatient (REF) | payer MEDICARE, SELFPAY ==
[2023-07-01 15:51] LABS: Abs Immature Grans 0.03 10^3/uL (0.0-0.06); Absolute Basophil Count 0.06 10^3/uL (0.0-0.2); Absolute Eosinophil Count 0.17 10^3/uL (0.0-0.7); Absolute Lymphocyte Count 1.66 10^3/uL (1.2-3.4); Absolute Monocyte Count 0.49 10^3/uL (0.1-0.8); Absolute Neutrophil Count 5.22 10^3/uL (1.2-6.7); Basophils % 0.8 %; Eosinophils % 2.2 %; HCT 40.2 % (36.0-46.0); HGB 13.7 g/dL (11.2-15.7); Immature Grans % 0.4 %; Lymphocytes % 21.8 %; MCHC 34.1 % (32.0-36.0); MCV 88 fL (80-95); MPV 11.1 fL (8.0-11.0); Monocytes % 6.4 %; Neutrophils % 68.4 %; Platelet Count 295 10^3/uL (130-400); RBC 4.57 10^6/uL (3.93-5.22); RDW 13.3 % (11.7-14.6); RDW-SD 43.2 fL; WBC 7.63 10^3/uL (4.4-10.8)
[2023-07-01 16:33] LABS: Vitamin D 25 Total 63.5 ng/mL (30-100)
[2023-07-01 16:39] LABS: ALT 27 U/L (14-59); AST 23 U/L (15-37); Albumin 3.7 g/dL (3.4-5.0); Alkaline Phosphatase 67 U/L (46-116); Anion Gap 8.8 mmol/L (3-11); BUN 15 mg/dL (7-18); Bilirubin, Total 0.4 mg/dL (0.2-1.0); CO2 27.2 mmol/L (21.0-32.0); CREATININE 0.8 mg/dL (0.55-1.02); Calcium 8.7 mg/dL (8.5-10.1); Chloride 104 mmol/L (98-107); Estimated GFR 76.79 (mL/min/1.73m2); Glucose 109 mg/dL (74-106); Potassium 4.4 mmol/L (3.5-5.1); Sodium 140 mmol/L (136-145); TSH (W/Ref FT4) 0.91 uIU/mL (0.36-3.74); Total Protein 6.5 g/dL (6.4-8.2)
[2023-07-01 16:42] LABS: Vitamin B12 > 2000 pg/mL (193-986)
== END 2023-07-01 09:10 | disposition home or self-care (01) ==
LOC: NCHCN 09:09
PROVIDERS: PCP Student in an Organized Health Care Education/Training Program; Visit Provider Student in an Organized Health Care Education/Training Program
DX: E03.9 Hypothyroidism, unspecified (principal); E55.9 Vitamin D deficiency, unspecified
CPT/HCPCS: 80053; 82306; 82607; 84443; 85025

== ENCOUNTER → 2023-08-16 01:33 | Outpatient (CLI) | payer MEDICARE, SELFPAY ==
--- NOTE | 2023-08-16 08:00 | DI.MAMMO_ITS ---
Exam(s) US BREAST RT LIMITED MG MAMMO DIAGNOSTIC BI EXAM: MG MAMMO DIAGNOSTIC BI CLINICAL HISTORY: 6-month follow-up rt abnl,r92.8. TECHNIQUE: Craniocaudal and mediolateral oblique Full Field Digital Mammography views with Computer Aided Diagnosis followed by Tomosynthesis and right breast ultrasound. COMPARISON: US US BREAST RT LIMITED from 08/16/2023 FINDINGS: Mammography/Tomosynthesis: Masses/Architectural Distortion: Stable appearance retroareolar densities in the right breast. Stabl e area of nodularity in the right breast centrally. No Abnormality or change seen on the left. Microcalcifictions: No suspicious pleomorphic-type are seen. Skin Thickening/Nipple Retraction: None. Right breast US: Echotexture: Normal appearance of the glandular tissue. Shadowing: No suspicious foci. Cyst: None. Solid lesions: None seen. Ductal dilation: Stable appearance of ductal dilatation in the subareolar region. No evidence of int raductal mass. Stable cyst 8 o'clock position, 2 cm from the nipple IMPRESSION: 1. No evidence of malignancy is noted. 2. Unless there is more urgent need, follow-up screening mammography is recommended, as per [place] [employer] guidelines. 3. The findings were discussed with the patient on the date of the examination. BI-RADS Category 2 - Benign Findings Breast Density - Category B - Scattered areas of fibroglandular density Breast density category C or D implies that the patient has dense breast tissue. Dense breast tissue is very common and is not abnormal but dense breast tissue can make it harder to find cancer on a ma mmogram. Also, dense breast tissue may increase their breast cancer risk. This information about the result of the mammogram report was provided to the patient to raise their awareness. Use this report when you speak with the patient about their risks for breast cancer, which includes their family hist ory. At that time, you may recommend for more screening tests (Ultrasound or MRI) as they might be us eful based on their risk. A negative radiographic report should not delay biopsy if a dominant or clinically suspicious mass is present. Up to ten percent of cancers are not identified on mammography. A negative report may reinforce clinical impression. Adenosis and dense breasts may obscure an underlying neoplasm. False positive reports average 6 to 10%. Patient will receive a letter notifying them of these results.
== END ==
PROVIDERS: PCP Student in an Organized Health Care Education/Training Program; Visit Provider Obstetrics & Gynecology Gynecology
DX: Z87.898 Personal history of other specified conditions; R92.8 Other abnormal and inconclusive findings on diagnostic imaging of breast
CPT/HCPCS: 76642; 77062; 77066; G0279

== ENCOUNTER 2023-10-06 16:41 | Outpatient (REF) | payer MEDICARE, SELFPAY ==
[2023-10-06 15:34] LABS: Calculated LDL 117 mg/dL (<100); Cholesterol 199 mg/dL (<200); HDL Cholesterol 61 mg/dL (40-60); Triglyceride 105 mg/dL (<150)
== END 2023-10-06 16:42 | disposition home or self-care (01) ==
LOC: NCHCN 16:41
PROVIDERS: PCP Student in an Organized Health Care Education/Training Program; Visit Provider Student in an Organized Health Care Education/Training Program
DX: E78.5 Hyperlipidemia, unspecified (principal)
CPT/HCPCS: 80061

== ENCOUNTER 2023-10-13 07:41 | Outpatient (CLI) | payer MEDICARE, SELFPAY ==
[2023-10-13 08:11] VITALS: PULSE 63; O2SAT 98
[2023-10-13 08:15] VITALS: PULSE 64; RESP 14; O2SAT 98
[2023-10-13 08:20] VITALS: PULSE 63; RESP 12; O2SAT 96
[2023-10-13 08:21] VITALS: BP 165/94; PULSE 65; O2SAT 98
--- NOTE | 2023-10-13 08:21 | PDOC.PAIN ---
Date of service: 10/13/23 Time of Service: 08:21 Pain Managment Procedure Note Procedure Note Procedure Note: PROCEDURE NOTE LUMBAR EPIDURAL STEROID INJECTION Date of Service: October 13, 2023 Patient:Jacey Wells? Provider: Fredi Blackburn DO, MPH Jacey Mendez has been referred to the [facility] for a lumbar epidural steroid injection. Pre-operative diagnosis: Lumbosacral Radiculopathy Post-operative diagnosis: Same Pre-Procedure Pain: VAS= 8 /10 Comments: She had this procedure on 02/16/2023 and had 6 months of >50% pain improvement. Jacey was interviewed and the medical record was reviewed.? There were no medical, pharmacologic, radiographic or other structural contraindications to attempting fluoroscopically guided Lumbar epidural steroid injection.? Risks, potential side effects, indications, and potential benefits of the procedure were reviewed with Jacey.? Questions and concerns were addressed.? After it was clear that Jacey was fully informed about the procedure, the printed consent form was signed by the patient and myself.? Jacey was placed in the prone position on the fluoroscopy table and automated blood pressure cuff and pulse oximeter applied. The skin entry point for entering/approaching the epidural space for the lumbar epidural steroid injection was marked. Following thorough chlorhexadine preparation of the skin and draping and 1% lidocaine infiltration of the skin entry point and subcutaneous tissues, an 18 gauge Touhy needle was placed and advanced under fluoroscopic guidance and with loss of resistance technique into the L5-S1 epidural space. Needle tip placement and depth were aided and confirmed by fluoroscopy. There was no paresthesia or return of blood or CSF through the needle. 1 mls of Omnipaque 240 was injected with clear epidural spread confirmed with fluoroscopy. 80 mg of Depo-Medrol was? injected. This was followed by 1 ml of preservative-free normal saline to flush the steroid out of the needle. There was no unusual discomfort expressed by Jacey. The needle was withdrawn without difficulty. (49 mls of Omnipaque was wasted) Jacey was observed and was without hemodynamic, neurologic, or allergic reactions.? Fluoroscopic images were digitally archived. Jacey's vital signs were stable throughout the procedure and were as recorded in nursing records. Follow up plans and appointments were discussed with Jacey. Post procedure instruction was given as documented in nursing records and having met discharge criteria Jacey was discharged from the [facility]. COMMENTS: No apparent complications. Post-procedure pain: VAS= 0/10. Jacey to contact [facility] as needed. If at least 50% improvement in pain and/or function for at least 3 months is achieved, this procedure can be repeated. I personally performed this entire procedure. FREDI BLACKBURN DO, MPH ABPMR-subspecialty board certification in Pain Medicine [facility]
--- NOTE | 2023-10-13 08:23 | DI.RAD_ITS ---
Exam(s) XR PAIN CLINIC LUMBAR SP 2V EXAM: XR PAIN CLINIC LUMBAR SP 2V CLINICAL HISTORY: Dx: Lumbar Radiculopathy TECHNIQUE: 2D and realtime digital imaging was performed. CONTRAST MATERIAL: Refer to procedure report. COMPARISON: No exams were available for comparison FINDINGS: Fluoroscopy was provided for Dr. Blackburn during the performance of a lumbar epidural steroid injection. Please refer to the procedure report for complete details. Ka,r=6.21 mGy IMPRESSION: RADIATION DOSE DELIVERED: 0.0 0.0 0
[2023-10-13 08:24] VITALS: BP 151/103; PULSE 66
[2023-10-13 08:25] VITALS: BP 150/91; PULSE 65
[2023-10-13] MEDS: Omnipaque 240 MG/ML 50 ML BTL IJ (08:29)
[2023-10-13] MEDS: methylPREDNISolone ACETATE 80 MG/ML VIAL IJ (08:30)
[2023-10-13] MEDS: Epidural Tray 1 EACH MC (08:30)
== END 2023-10-13 07:42 | disposition home or self-care (01) ==
LOC: PC 07:41
PROVIDERS: PCP Student in an Organized Health Care Education/Training Program; Visit Provider Preventive Medicine Occupational Medicine
DX: M54.50 Low back pain, unspecified; M54.16 Radiculopathy, lumbar region
CPT/HCPCS: 62323; 72100; J1010; Q9967

== ENCOUNTER 2023-10-27 01:34 | Outpatient (CLI) | payer MEDICARE, SELFPAY ==
--- NOTE | 2023-10-27 | DI.DEXA_ITS ---
Exam(s) XR DEXA BONE DENSITY W/WO DECLAN EXAM: XR DEXA BONE DENSITY W/WO DECLAN CLINICAL HISTORY: AGE RELATED OSTEOPORISIS M81.0 COMPARE TO 202 DEXA T SCORES RECENTLY TECHNIQUE: [employer] Horizon C densitometer analysis of left hip, lumbar spine and left forearm. Lat eral survey image of the thoracic and lumbar spine. COMPARISON: DX DEXA BONE DENSITY WITH DECLAN from 06/03/2015 CR XR DEXA BONE DENSITY W/WO DECLAN from 08/20/2020 MR MR LUMBAR SPINE WO from 01/12/2022 FINDINGS: Lateral view of the thoracic and lumbar spine shows no evidence of compression fractures. Bone mineral density measurements of the lumbar spine correspond to a total T-score of -1.1, in the mildly osteopenic range. This represents a 20 percent increase from 2020 and 22.1 percent increase f rom 2016. Findings in part may be secondary to worsening of degenerative disc changes with endplate sclerosis. The least dense vertebral bodies L1 with a T-score of -2.4 which was similar to prior ex aminations. Bone mineral density measurements of the left hip correspond to a total T-score of -1.1. This repre sents a 4.5 percent decrease from 202 and a 16.6 percent decrease from 2016. the femoral neck T-sco re is -1.6, in the osteopenic range.. Theleft forearm bone mineral density measurements correspond to a T-score of the distal 3rd of -1.8, in the osteopenic range. This is not significantly changed from 202 but represents a 9.7 percent d ecrease from 2016.. IMPRESSION: Osteopenia of the lumbar spine, left hip and left forearm.
== END 2023-10-27 01:54 ==
PROVIDERS: PCP Student in an Organized Health Care Education/Training Program; Visit Provider Student in an Organized Health Care Education/Training Program
DX: M81.0 Age-related osteoporosis without current pathological fracture (principal)
CPT/HCPCS: 77080

== ENCOUNTER 2024-03-21 18:48 | Outpatient (REF) | payer MEDICARE, SELFPAY ==
[2024-03-21 21:42] LABS: Bacteria Rare HPF (Negative); C & S Indicated? C&S Done As Ordered; Casts Negative LPF (Negative); Crystals Negative HPF (Negative); Epithelial Cells Moderate HPF (Negative); Mucus Negative (Negative); Other Cells Rare Transitional (Negative); RBC 0-2 HPF (0-2)
== END 2024-03-21 18:49 | disposition home or self-care (01) ==
LOC: LBN 18:48
PROVIDERS: PCP Student in an Organized Health Care Education/Training Program; Visit Provider Physician Assistant Medical
DX: R30.0 Dysuria (principal)
CPT/HCPCS: 81015; 87086; 87480; 87510; 87660

== ENCOUNTER 2024-07-12 14:52 | Outpatient (CLI) | payer MEDICARE, SELFPAY ==
--- NOTE | 2024-07-12 06:00 | DI.RAD_ITS ---
Exam(s) XR PAIN CLINIC LUMBAR SP 2V EXAM: XR PAIN CLINIC LUMBAR SP 2V CLINICAL HISTORY: DX: Lumbar Radiculopathy TECHNIQUE: 2D and realtime digital imaging was performed. Radiologist not present. CONTRAST MATERIAL: None. COMPARISON: No exams were available for comparison FINDINGS: Fluoroscopy was provided for pain management therapy. Lower lumbar epidural steroid injection. Please refer to procedure report or details. Radiation Exposure Index: Ka,r=7.59 mGy IMPRESSION: As above. RADIATION DOSE DELIVERED:
[2024-07-12 14:58] VITALS: BP 98/56; PULSE 95; RESP 20; TEMP 36.7; O2SAT 99
[2024-07-12 15:24] VITALS: PULSE 94
[2024-07-12 15:25] VITALS: BP 124/90; PULSE 100; PULSE 87; RESP 15; O2SAT 95
[2024-07-12 15:30] VITALS: PULSE 77; RESP 15; O2SAT 94
[2024-07-12 15:31] VITALS: BP 146/103; PULSE 71; PULSE 79; RESP 11; O2SAT 96
--- NOTE | 2024-07-12 15:36 | PDOC.PAIN_ITS ---
Date of service: 07/12/24 Time of Service: 15:36 Pain Managment Procedure Note Procedure Note Procedure Note: PROCEDURE NOTE LUMBAR EPIDURAL STEROID INJECTION Date of Service: July 12, 2024 Patient:Jacey Wells? Provider: Fredi Blackburn DO, MPH Jacey Mendez has been referred to the [facility] for a lumbar epidural steroid injection. Pre-operative diagnosis: Lumbosacral Radiculopathy ICD-10 M54.16 Post-operative diagnosis: Same Pre-Procedure Pain: VAS= 7-8 /10 Comments: She last had this procedure in October 2023 and had >6 months of >50% pain relief. Jacey was interviewed and the medical record was reviewed.? There were no medical, pharmacologic, radiographic or other structural contraindications to attempting fluoroscopically guided Lumbar epidural steroid injection.? Risks, potential side effects, indications, and potential benefits of the procedure were reviewed with Jacey.? Questions and concerns were addressed.? After it was clear that Jacey was fully informed about the procedure, the printed consent form was signed by the patient and myself.? Jacey was placed in the prone position on the fluoroscopy table and automated blood pressure cuff and pulse oximeter applied. The skin entry point for entering/approaching the epidural space for the lumbar epidural steroid injection was marked. Following thorough chlorhexadine preparation of the skin and draping and 1% lidocaine infiltration of the skin entry point and subcutaneous tissues, an 18 gauge Touhy needle was placed and advanced under fluoroscopic guidance and with loss of resistance technique into the L5-S1 epidural space. Needle tip placement and depth were aided and confirmed by fluoroscopy. There was no paresthesia or return of blood or CSF through the needle. 1 mls of Omnipaque 240 was injected with clear epidural spread confirmed with fluoroscopy. 80 mg of Depo-Medrol was? injected. This was followed by 1 ml of preservative-free normal saline to flush the steroid out of the needle. There was no unusual discomfort expressed by Jacey. The needle was withdrawn without difficulty. (49 mls of Omnipaque was wasted) Jacey was observed and was without hemodynamic, neurologic, or allergic reactions.? Fluoroscopic images were digitally archived. Jacey's vital signs were stable throughout the procedure and were as recorded in nursing records. Follow up plans and appointments were discussed with Jacey. Post procedure instruction was given as documented in nursing records and having met discharge criteria Jacey was discharged from the [facility]. COMMENTS: No apparent complications. Post-procedure pain: VAS= 5/10. Jacey to contact [facility] as needed. If at least 50% improvement in pain and/or function for at least 3 months is achieved, this procedure can be repeated. I personally performed this entire procedure. FREDI BLACKBURN DO, MPH ABPMR-subspecialty board certification in Pain Medicine [facility] Coding Conscious Sedation used for procedure: No CPT Codes: Inj Spine L/S w/Imaging - [id number] ([id number] ~G) Additional Codes: Date of Service (71960) Date of service: 07/12/24
[2024-07-12 15:39] VITALS: BP 123/81; PULSE 70
[2024-07-12] MEDS: methylPREDNISolone ACETATE 80 MG/ML VIAL IJ (15:41)
[2024-07-12] MEDS: Epidural Tray 1 EACH MC (15:41)
[2024-07-12] MEDS: Omnipaque 240 MG/ML 50 ML BTL IJ (15:41)
== END 2024-07-12 14:53 | disposition home or self-care (01) ==
PROVIDERS: PCP Student in an Organized Health Care Education/Training Program; Visit Provider Preventive Medicine Occupational Medicine
DX: M54.16 Radiculopathy, lumbar region (principal); M54.50 Low back pain, unspecified
CPT/HCPCS: 62323; 72100; J1010; Q9967

== ENCOUNTER 2024-07-25 08:15 | Outpatient (CLI) | payer MEDICARE, SELFPAY ==
[2024-07-25 08:25] LABS: Abs Immature Grans 0.06 10^3/uL (0.0-0.06); Absolute Basophil Count 0.08 10^3/uL (0.0-0.2); Absolute Eosinophil Count 0.18 10^3/uL (0.0-0.7); Absolute Lymphocyte Count 2.61 10^3/uL (1.2-3.4); Absolute Monocyte Count 0.65 10^3/uL (0.1-0.8); Absolute Neutrophil Count 5.05 10^3/uL (1.2-6.7); Basophils % 0.9 %; Eosinophils % 2.1 %; HCT 41.9 % (36.0-46.0); HGB 14.1 g/dL (11.2-15.7); Immature Grans % 0.7 %; Lymphocytes % 30.2 %; MCH 30.2 pg (27.0-33.0); MCHC 33.7 % (32.0-36.0); MCV 90 fL (80-95); Monocytes % 7.5 %; Neutrophils % 58.6 %; Platelet Count 310 10^3/uL (130-400); RBC 4.67 10^6/uL (3.93-5.22); RDW 13.9 % (11.7-14.6); RDW-SD 45.5 fL; WBC 8.63 10^3/uL (4.4-10.8)
[2024-07-25 08:52] LABS: Hemoglobin A1C 5.5 % (<5.7)
[2024-07-25 09:46] LABS: ALT 37 U/L (14-59); AST 20 U/L (15-37); Albumin 3.6 g/dL (3.4-5.0); Alkaline Phosphatase 82 U/L (46-116); Anion Gap 4.5 mmol/L (3-11); BUN 22 mg/dL (7-18); Bilirubin, Total 0.5 mg/dL (0.2-1.0); CO2 32.5 mmol/L (21.0-32.0); CREATININE 1.1 mg/dL (0.55-1.02); Calculated LDL 105 mg/dL (<100); Chloride 104 mmol/L (98-107); Cholesterol 203 mg/dL (<200); Estimated GFR 52.08 (mL/min/1.73m2); Glucose 108 mg/dL (74-106); HDL Cholesterol 92 mg/dL (>or=50); Potassium 4.7 mmol/L (3.5-5.1); Sodium 141 mmol/L (136-145); TSH 2.28 uIU/mL (0.36-3.74); Triglyceride 30 mg/dL (<150)
== END 2024-07-25 08:16 | disposition home or self-care (01) ==
LOC: LBO 08:16
PROVIDERS: PCP Student in an Organized Health Care Education/Training Program; Visit Provider Nurse Practitioner Family
DX: E66.9 Obesity, unspecified (principal); E03.9 Hypothyroidism, unspecified
CPT/HCPCS: 36415; 80053; 80061; 83036; 84443; 85025

== ENCOUNTER 2024-08-16 01:22 | Outpatient (CLI) | payer MEDICARE, SELFPAY ==
--- NOTE | 2024-08-16 07:45 | DI.MAMMO_ITS ---
Exam(s) MAMMO SCREENING EXAM: MAMMO SCREENING CLINICAL HISTORY: screening,Z12.39. TECHNIQUE: Bilateral full field digital CC and MLO mammographic images were obtained with 3D tomosynthesis and utilizing computer aided detection (CAD). COMPARISON: Prior mammograms were reviewed. FINDINGS: There has been no significant change in the appearance and distribution of the fibroglandular tissue. Asymmetric density in the right breast is unchanged from prior mammograms. There are no new spiculated masses nor new malignant appearing microcalcification groups. There is no significant architectural distortion nor skin thickening-retraction. IMPRESSION: No radiographic evidence of malignancy. BI-RADS Category 2 - Benign Findings Breast Density - Category B - There are scattered areas of fibroglandular density. Breast density Category C or D implies that the patient has dense breast tissue. Dense breast tissue can make it harder to find cancer on a mammogram. Dense breast tissue is also associated with an increased risk of breast cancer. This information about the result of the mammogram report was provided to the patient to raise their awareness. Use this report when you speak with the patient about their risks for breast cancer, which includes their family history. At that time, you may recommend additional screening tests (Ultrasound or MRI) as these tests may add significant information. A negative radiographic report should not delay biopsy if a dominant or clinically suspicious mass is present. Up to ten percent of cancers are not identified on mammography. A negative report may reinforce clinical impression. Adenosis and dense breasts may obscure an underlying neoplasm. False positive reports average 6 to 10%. Patient will receive a letter notifying them of these results.
== END 2024-08-16 01:42 ==
PROVIDERS: PCP Student in an Organized Health Care Education/Training Program; Visit Provider Obstetrics & Gynecology Gynecology
DX: Z12.31 Encounter for screening mammogram for malignant neoplasm of breast (principal); R92.323 Mammographic fibroglandular density, bilateral breasts; D24.1 Benign neoplasm of right breast
CPT/HCPCS: 77063; 77067

== ENCOUNTER 2024-11-08 19:37 | Outpatient (REF) | payer MEDICARE, SELFPAY ==
[2024-11-08 19:33] LABS: Anion Gap 10.7 mmol/L (3-11); BUN 23 mg/dL (7-18); CO2 27.3 mmol/L (21.0-32.0); Calcium 8.8 mg/dL (8.5-10.1); Chloride 103 mmol/L (98-107); Estimated GFR 76.31 (mL/min/1.73m2); Glucose 91 mg/dL (74-106); Potassium 4.5 mmol/L (3.5-5.1); Sodium 141 mmol/L (136-145); T4 10.1 ug/dL (4.7-13.3); TSH 1.20 uIU/mL (0.36-3.74)
== END 2024-11-08 19:38 | disposition home or self-care (01) ==
LOC: NCHCN 19:37
PROVIDERS: PCP Student in an Organized Health Care Education/Training Program; Visit Provider Student in an Organized Health Care Education/Training Program
DX: E03.9 Hypothyroidism, unspecified (principal); R35.0 Frequency of micturition; I10 Essential (primary) hypertension
CPT/HCPCS: 80048; 87077; 84436; 84443; 87086; 87186